=== PATIENT | male | born 1960 | race Caucasian/White ===

== ENCOUNTER 2018-06-11 17:32 | Observation (INO) | payer BC ==
[2018-06-11] MEDS ORDERED: SODIUM CHLORIDE 0.9% 1,000 ML IV STA ×2 (17:48)
--- NOTE | 2018-06-11 17:51 | ED ---
Recheck HPI - General Chief Complaint: Recheck/Abnormal Lab/Rx Stated Complaint: hyperglycemia Time Seen by Provider: 06/11/18 17:48 Source: patient, RN notes reviewed, old records reviewed Mode of arrival: ambulatory Limitations: no limitations - History of Present Illness Initial Comments: This is a 49-year-old male the ER for evaluation. Patient had an increase in urination increase in thirst as of the last 3 days. Today patient presents with those complaints as well as visit from [facility] showing significantly elevated blood sugar. Patient has no medical history takes no medications denies drugs or alcohol no fevers no chest pain no abdominal pain. MD Complaint: abnormal lab (Hyperglycemia) -: unknown Returns Today for: Called Because of Abnormal Lab/Test Symptoms Since Prior Visit: no new symptoms Context: called for abnormal lab result Associated Symptoms: none - Related Data Home Medications Medication Instructions Recorded Confirmed No Known Home Medications 06/11/18 06/11/18 Allergies Allergy/AdvReac Type Severity Reaction Status Date / Time No Known Allergies Allergy Unverified 06/11/18 18:20 Review of Systems ROS Statement: Those systems with pertinent positive or pertinent negative responses have been documented in the HPI. ROS Other: All systems not noted in ROS Statement are negative. Past Medical History Past Medical History: No Reported History History of Any Multi-Drug Resistant Organisms: None Reported Past Surgical History: Appendectomy Past Psychological History: No Psychological Hx Reported Smoking Status: Never smoker Past Alcohol Use History: Occasional Past Drug Use History: None Reported General Exam Limitations: no limitations General appearance: alert, in no apparent distress Head exam: Present: atraumatic, normocephalic, normal inspection Eye exam: Present: normal appearance, PERRL, EOMI. Absent: scleral icterus, conjunctival injection, periorbital swelling ENT exam: Present: normal exam, mucous membranes moist Neck exam: Present: normal inspection. Absent: tenderness, meningismus, lymphadenopathy Respiratory exam: Present: normal lung sounds bilaterally. Absent: respiratory distress, wheezes, rales, rhonchi, stridor Cardiovascular Exam: Present: regular rate, normal rhythm, normal heart sounds. Absent: systolic murmur, diastolic murmur, rubs, gallop, clicks GI/Abdominal exam: Present: soft, normal bowel sounds. Absent: distended, tenderness, guarding, rebound, rigid Extremities exam: Present: normal inspection, full ROM, normal capillary refill. Absent: tenderness, pedal edema, joint swelling, calf tenderness Back exam: Present: normal inspection Neurological exam: Present: alert, oriented X3, CN II-XII intact Psychiatric exam: Present: normal affect, normal mood Skin exam: Present: warm, dry, intact, normal color. Absent: rash Course Vital Signs 06/11/18 06/11/18 06/11/18 17:35 19:14 20:02 Temperature 98.4 F 98.0 F Pulse Rate 87 74 73 Respiratory 18 16 18 Rate Blood Pressure 157/101 125/90 158/105 O2 Sat by Pulse 96 98 99 Oximetry - Reevaluation(s) Reevaluation #1: 06/11/18 18:34 Medical record reviewed and noncontributory Medical Decision Making - Medical Decision Making 57 male the ER for evaluation, patient does have abnormal lab tests hyperglycemia. New-onset diabetes, patient has no family doctor and secondary to insurance unable to give family doctor in [facility], will admit for blood sugar control and diabetic counseling - Lab Data Result diagrams: 06/11/18 18:50 06/11/18 18:50 Lab Results 06/11/18 06/11/18 06/11/18 Range/Units 18:50 18:50 18:50 WBC 6.2 (3.8-10.6) k/uL RBC 6.21 H (4.30-5.90) m/uL Hgb 18.7 H (13.0-17.5) gm/dL Hct 56.5 H (39.0-53.0) % MCV 91.0 (80.0-100.0) fL MCH 30.1 (25.0-35.0) pg MCHC 33.1 (31.0-37.0) g/dL RDW 12.7 (11.5-15.5) % Plt Count 149 L (150-450) k/uL Neutrophils % 55 % Lymphocytes % 33 % Monocytes % 6 % Eosinophils % 3 % Basophils % 1 % Neutrophils # 3.4 (1.3-7.7) k/uL Lymphocytes # 2.0 (1.0-4.8) k/uL Monocytes # 0.4 (0-1.0) k/uL Eosinophils # 0.2 (0-0.7) k/uL Basophils # 0.1 (0-0.2) k/uL VBG pH (7.31-7.41) VBG pCO2 (37-51) mmHg VBG HCO3 (24-28) mmol/L Sodium 135 L (137-145) mmol/L Potassium 5.1 (3.5-5.1) mmol/L Chloride 99 (98-107) mmol/L Carbon Dioxide 22 (22-30) mmol/L Anion Gap 14 mmol/L BUN 17 (9-20) mg/dL Creatinine 0.72 (0.66-1.25) mg/dL Est GFR (CKD-EPI)AfAm >90 (>60 ml/min/1.73 sqM) Est GFR (CKD-EPI)NonAf >90 (>60 ml/min/1.73 sqM) Glucose 615 H* (74-99) mg/dL Calcium 10.3 H (8.4-10.2) mg/dL Phosphorus 4.2 (2.5-4.5) mg/dL Magnesium 1.9 (1.6-2.3) mg/dL Total Bilirubin 1.0 (0.2-1.3) mg/dL AST 33 (17-59) U/L ALT 54 (21-72) U/L Alkaline Phosphatase 221 H (38-126) U/L Troponin I <0.012 (0.000-0.034) ng/mL Total Protein 7.8 (6.3-8.2) g/dL Albumin 4.6 (3.5-5.0) g/dL Urine Color Urine Appearance (Clear) Urine pH (5.0-8.0) Ur Specific [place] (1.001-1.035) Urine Protein (Negative) Urine Glucose (UA) (Negative) Urine Ketones (Negative) Urine Blood (Negative) Urine Nitrite (Negative) Urine Bilirubin (Negative) Urine Urobilinogen (<2.0) mg/dL Ur Leukocyte Esterase (Negative) Acetone, Qual Negative (Negative) 06/11/18 06/11/18 Range/Units 18:50 19:09 WBC (3.8-10.6) k/uL RBC (4.30-5.90) m/uL Hgb (13.0-17.5) gm/dL Hct (39.0-53.0) % MCV (80.0-100.0) fL MCH (25.0-35.0) pg MCHC (31.0-37.0) g/dL RDW (11.5-15.5) % Plt Count (150-450) k/uL Neutrophils % % Lymphocytes % % Monocytes % % Eosinophils % % Basophils % % Neutrophils # (1.3-7.7) k/uL Lymphocytes # (1.0-4.8) k/uL Monocytes # (0-1.0) k/uL Eosinophils # (0-0.7) k/uL Basophils # (0-0.2) k/uL VBG pH 7.38 (7.31-7.41) VBG pCO2 43 (37-51) mmHg VBG HCO3 25 (24-28) mmol/L Sodium (137-145) mmol/L Potassium (3.5-5.1) mmol/L Chloride (98-107) mmol/L Carbon Dioxide (22-30) mmol/L Anion Gap mmol/L BUN (9-20) mg/dL Creatinine (0.66-1.25) mg/dL Est GFR (CKD-EPI)AfAm (>60 ml/min/1.73 sqM) Est GFR (CKD-EPI)NonAf (>60 ml/min/1.73 sqM) Glucose (74-99) mg/dL Calcium (8.4-10.2) mg/dL Phosphorus (2.5-4.5) mg/dL Magnesium (1.6-2.3) mg/dL Total Bilirubin (0.2-1.3) mg/dL AST (17-59) U/L ALT (21-72) U/L Alkaline Phosphatase (38-126) U/L Troponin I (0.000-0.034) ng/mL Total Protein (6.3-8.2) g/dL Albumin (3.5-5.0) g/dL Urine Color Light Yellow Urine Appearance Clear (Clear) Urine pH 5.0 (5.0-8.0) Ur Specific [place] 1.038 H (1.001-1.035) Urine Protein Negative (Negative) Urine Glucose (UA) 4+ H (Negative) Urine Ketones Trace H (Negative) Urine Blood Negative (Negative) Urine Nitrite Negative (Negative) Urine Bilirubin Negative (Negative) Urine Urobilinogen <2.0 (<2.0) mg/dL Ur Leukocyte Esterase Negative (Negative) Acetone, Qual (Negative) - EKG Data -: EKG Interpreted by Me (EKG shows normal sinus rhythm rate of 71, AL 150, QRS 160, QTc 4:15) Disposition Clinical Impression: Diabetes mellitus, new onset, Hyperglycemia Disposition: ADMITTED IP TO THIS HOSP Condition: Good Is patient prescribed a controlled substance at d/c from ED?: No Referrals: None,Stated [Primary Care Provider] - 1-2 days
[2018-06-11 19:05] LABS: Basophils # (A) 0.1 k/uL (0-0.2); Basophils % (A) 1 %; Eosinophils # (A) 0.2 k/uL (0-0.7); Eosinophils % (A) 3 %; HGB 18.7 gm/dL (13.0-17.5); Lymphocytes % (A) 33 %; MCH 30.1 pg (25.0-35.0); MCHC 33.1 g/dL (31.0-37.0); Mean Platelet Volume 9.5; Monocytes # (A) 0.4 k/uL (0-1.0); Monocytes % (A) 6 %; Neutrophils # (A) 3.4 k/uL (1.3-7.7); Neutrophils % (A) 55 %; Platelet Count 149 k/uL (150-450); RBC 6.21 m/uL (4.30-5.90); RDW 12.7 % (11.5-15.5); WBC 6.2 k/uL (3.8-10.6)
[2018-06-11 19:08] LABS: HCT 56.5 % (39.0-53.0)
[2018-06-11 19:09] LABS: Appearance,Urine Clear (Clear); Bilirubin,Urine Negative (Negative); Blood,Urine Negative (Negative); Color,Urine Light Yellow; Glucose,Urine (UA) 4+ (Negative); Ketones,Urine Trace (Negative); Leukocyte Esterase,Urine Negative (Negative); Nitrite,Urine Negative (Negative); Protein,Urine Negative (Negative); Specific Gravity,Urine 1.038 (1.001-1.035); Urobilinogen,Urine <2.0 mg/dL (<2.0)
[2018-06-11 19:14] LABS: ALT 54 U/L (21-72); AST 33 U/L (17-59); Albumin 4.6 g/dL (3.5-5.0); Alkaline Phosphatase 221 U/L (38-126); Anion Gap 14 mmol/L; Blood Urea Nitrogen 17 mg/dL (9-20); Calcium 10.3 mg/dL (8.4-10.2); Carbon Dioxide 22 mmol/L (22-30); Chloride 99 mmol/L (98-107); Magnesium 1.9 mg/dL (1.6-2.3); Phosphorus 4.2 mg/dL (2.5-4.5); Sodium 135 mmol/L (137-145); Total Protein 7.8 g/dL (6.3-8.2)
[2018-06-11 19:20] LABS: VBG PH 7.38 (7.31-7.41)
[2018-06-11 19:27] LABS: Glucose 615 mg/dL (74-99); Potassium 5.1 mmol/L (3.5-5.1)
[2018-06-11] MEDS ORDERED: SODIUM CHLORIDE 0.9% 1,000 ML IV ONE ×2 (20:04→20:29)
[2018-06-11] MEDS ORDERED: SODIUM CHLORIDE 0.9% 1,000 ML IV SCH (20:30)
[2018-06-11] MEDS: INSULIN REGULAR 100 UNIT in SODIUM CHLORIDE 0.9% 100 ML IV SCH (21:55)
[2018-06-11 22:03] LABS: Glucose,Whole Blood 350 mg/dL (75-99)
[2018-06-11] MEDS ORDERED: ACETAMINOPHEN TAB 500 MG TAB PO PRN (22:10)
[2018-06-11] MEDS ORDERED: HYDROcodone/APAP 5-325MG 1 EACH TAB PO PRN (22:10)
[2018-06-11] MEDS ORDERED: ALPRAZolam 0.25 MG TAB PO PRN (22:10)
[2018-06-11] MEDS ORDERED: D5-0.45% NACL WITH KCL 20MEQ/L 1,000 ML IV SCH (23:00)
[2018-06-11 23:32] LABS: Glucose,Whole Blood 288 mg/dL (75-99)
[2018-06-12 00:09] LABS: Anion Gap 7 mmol/L; Blood Urea Nitrogen 12 mg/dL (9-20); Carbon Dioxide 24 mmol/L (22-30); Chloride 109 mmol/L (98-107); Glucose 278 mg/dL (74-99); Potassium 3.7 mmol/L (3.5-5.1); Sodium 140 mmol/L (137-145)
[2018-06-12 00:31] LABS: Glucose,Whole Blood 236 mg/dL (75-99)
[2018-06-12 02:32] LABS: Glucose,Whole Blood 121 mg/dL (75-99)
[2018-06-12 03:51] LABS: Glucose,Whole Blood 134 mg/dL (75-99)
[2018-06-12 04:30] LABS: Anion Gap 6 mmol/L; Blood Urea Nitrogen 12 mg/dL (9-20); Carbon Dioxide 23 mmol/L (22-30); Chloride 110 mmol/L (98-107); Glucose 166 mg/dL (74-99); Potassium 3.6 mmol/L (3.5-5.1); Sodium 139 mmol/L (137-145)
[2018-06-12 05:45] LABS: Glucose,Whole Blood 197 mg/dL (75-99)
[2018-06-12] MEDS: INSULIN REGULAR 100 UNIT in SODIUM CHLORIDE 0.9% 100 ML IV SCH ×2 (07:25→08:21)
[2018-06-12 07:32] LABS: Glucose,Whole Blood 185 mg/dL (75-99)
[2018-06-12] MEDS: HEPARIN SODIUM,PORCINE 5,000 UNIT/ML 1 ML VIAL SQ SCH ×2 (09:38→20:27)
[2018-06-12 09:39] LABS: Glucose,Whole Blood 236 mg/dL (75-99)
[2018-06-12] MEDS: PANTOPRAZOLE 40 MG TABLET PO SCH (10:42)
[2018-06-12] MEDS ORDERED: INSULIN DETEMIR (LEVEMIR) 100 UNIT/ML SYR SQ ONE (11:26)
[2018-06-12 11:54] LABS: Glucose,Whole Blood 174 mg/dL (75-99)
[2018-06-12 13:16] VITALS: BMI 32.1
[2018-06-12] MEDS: INSULIN ASPART (NovoLOG) 100 UNIT/ML VIAL SQ SCH ×2 (15:09→18:21)
[2018-06-12 15:55] LABS: Hemoglobin A1C 15.9 % (4.0-6.0)
--- NOTE | 2018-06-12 16:01 | US ---
EXAMINATION TYPE: US abdomen complete DATE OF EXAM: 06/12/2018 COMPARISON: NONE CLINICAL HISTORY: Distension. EXAM MEASUREMENTS: Liver Length: 16.8 cm Gallbladder Wall: 0.2 cm CBD: 0.4 cm Spleen: 14.6 cm Right Kidney: 11.3 x 5.0 x 5.4 cm Left Kidney: 14.5 x 5.7 x 6.7 cm Extensive overlying bowel gas, large body habitus. Technically difficult study. Pancreas: Obscured by bowel gas Liver: Increased attenuation, decreased visualization of vessels suggestive of fatty infiltrate, griselda e portions obscured Gallbladder: wnl as seen Evidence for sonographic Schaefer's sign: no CBD: small portion visualized Spleen: splenomegaly Right Kidney: wnl Left Kidney: anechoic oblong structure measuring 2.3 x 1.2 x 2.4cm, measures large Upper IVC: wnl Abd Aorta: portions visualized wnl, some portions obscured by overlying bowel gas IMPRESSION: 1. Increased attenuation liver suggesting fatty infiltration, otitis and diffuse cellulitic disease. 2. Anechoic lesion involving the left kidney may be related to a renal cyst. 3. Mild splenomegaly.
[2018-06-12 17:53] LABS: Glucose,Whole Blood 272 mg/dL (75-99)
[2018-06-12] MEDS ORDERED: INSULIN DETEMIR (LEVEMIR) 100 UNIT/ML SYR SQ SCH (21:00)
--- NOTE | 2018-06-12 22:07 | P.HPIM ---
History of Present Illness H&P Date: 06/12/18 Chief Complaint: Increased urination Patient is a 57-year-old male without significant past medical history came to ER with complaints of increasing frequency of urination and drinking plenty of water which has been present for the past 6 weeks. Worsened during last 3 days. Otherwise patient denied any other medical problems. No complaints of chest pain or shortness of breath. No nausea vomiting or abdominal pain or diarrhea. No dysuria or hematuria. No headache or dizziness or lightheadedness. Denied any medication use. No drugs or alcohol. No history of smoking. Patient's father had diabetes at older age. Patient's brought him to the hospital. Blood sugar was 615 on admission A1c 15.9 Acetone negative Review of Systems Constitutional: Patient denies any fever or chills . No generalized weakness or weight loss. Abdomen: Patient denied nausea vomiting and diarrhea and abdominal pain. Cardiovascular: Patient denies any chest pain or short of breath no palpitations. Respiratory: patient denied any cough is from production. No shortness of breath Neurologic: Patient denied any numbness or tingling headache. Musculoskeletal: Patient denies any complaints of joint swelling or deformity. Skin: Negative Psychiatric: Negative Endocrine: No heat or cold intolerance. No recent weight gain. Genitourinary: No dysuria or hematuria. All other 14 point ROS negative except the above Past Medical History Past Medical History: No Reported History History of Any Multi-Drug Resistant Organisms: None Reported Past Surgical History: Appendectomy Additional Past Surgical History / Comment(s): Appendix taken out at 4 years old. 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 Smoking Status: Never smoker Past Alcohol Use History: Rare Past Drug Use History: None Reported - Past Family History Father Family Medical History: Diabetes Mellitus, Hypertension Additional Family Medical History / Comment(s): Borderline diabetic - . Medications and Allergies Home Medications Medication Instructions Recorded Confirmed Type No Known Home Medications 06/11/18 06/11/18 History Allergies Allergy/AdvReac Type Severity Reaction Status Date / Time No Known Allergies Allergy Unverified 06/11/18 18:20 Physical Exam Vitals: Vital Signs Temp Pulse Pulse Resp BP BP BP 06/12/18 05:15 97.7 F 66 20 06/11/18 22:40 98 F 73 20 06/11/18 21:52 98.1 F 79 16 147/99 06/11/18 21:28 155/101 151/105 06/11/18 20:48 73 16 136/98 06/11/18 20:02 98.0 F 73 18 158/105 06/11/18 19:14 74 16 125/90 06/11/18 17:35 98.4 F 87 18 157/101 BP Pulse Ox 06/12/18 05:15 118/77 97 06/11/18 22:40 150/98 98 06/11/18 21:52 97 06/11/18 21:28 135/91 06/11/18 20:48 97 06/11/18 20:02 99 06/11/18 19:14 98 06/11/18 17:35 96 Intake and Output 06/11/18 06/12/18 06/12/18 22:59 06:59 14:59 Intake Total 59.474 17.700 Balance 59.474 17.700 Intake: Intake, IV Titration 59.474 17.700 Amount Insulin Regular 100 unit 59.474 17.700 In Sodium Chloride 0.9% 100 ml @ 0.1 UNITS/KG/HR 11.444 mls/hr IV .Q8H50M COUNTS INCLUDE 234 BEDS AT THE [facility] Rx#:[id number] Other: Voiding Method Toilet Toilet Weight 113.307 kg PHYSICAL EXAMINATION: Patient is lying in the bed comfortably, no acute distress, awake alert and oriented.. HEENT: Normocephalic. Neck is supple. Pupils reactive. Nostrils clear. Oral cavity is moist. Ears reveal no drainage. Neck reveals no JVD, carotid bruits, or thyromegaly. CHEST EXAMINATION: Trachea is central. Symmetrical expansion. Lung main clear to auscultation and percussion. CARDIAC: Normal S1, S2 with no gallops. No murmurs ABDOMEN: Soft. Bowel sounds normal. No organomegaly. No abdominal bruits. Extremities: reveal no edema. No clubbing or cyanosis Neurologically awake, alert, oriented x3 with well-coordinated movements. No focal deficits noted Skin: No rash or skin lesions. Psychiatric: Coperative. Nonsuicidal Musculoskeletal: No joint swelling or deformity. Normal range of motion. Results CBC & Chem 7: 06/11/18 18:50 06/12/18 04:05 Labs: Abnormal Lab Results - Last 24 Hours (Table) 06/11/18 06/11/18 06/11/18 Range/Units 18:50 18:50 18:50 RBC 6.21 H (4.30-5.90) m/uL Hgb 18.7 H (13.0-17.5) gm/dL Hct 56.5 H (39.0-53.0) % Plt Count 149 L (150-450) k/uL Sodium 135 L (137-145) mmol/L Chloride (98-107) mmol/L Creatinine (0.66-1.25) mg/dL Glucose 615 H* (74-99) mg/dL POC Glucose (mg/dL) (75-99) mg/dL Calcium 10.3 H (8.4-10.2) mg/dL Alkaline Phosphatase 221 H (38-126) U/L Ur Specific [place] 1.038 H (1.001-1.035) Urine Glucose (UA) 4+ H (Negative) Urine Ketones Trace H (Negative) 06/11/18 06/11/18 06/11/18 Range/Units 21:52 23:12 23:45 RBC (4.30-5.90) m/uL Hgb (13.0-17.5) gm/dL Hct (39.0-53.0) % Plt Count (150-450) k/uL Sodium (137-145) mmol/L Chloride 109 H (98-107) mmol/L Creatinine 0.56 L (0.66-1.25) mg/dL Glucose 278 H (74-99) mg/dL POC Glucose (mg/dL) 350 H 288 H (75-99) mg/dL Calcium (8.4-10.2) mg/dL Alkaline Phosphatase (38-126) U/L Ur Specific [place] (1.001-1.035) Urine Glucose (UA) (Negative) Urine Ketones (Negative) 06/12/18 06/12/18 06/12/18 Range/Units 00:30 02:30 03:35 RBC (4.30-5.90) m/uL Hgb (13.0-17.5) gm/dL Hct (39.0-53.0) % Plt Count (150-450) k/uL Sodium (137-145) mmol/L Chloride (98-107) mmol/L Creatinine (0.66-1.25) mg/dL Glucose (74-99) mg/dL POC Glucose (mg/dL) 236 H 121 H 134 H (75-99) mg/dL Calcium (8.4-10.2) mg/dL Alkaline Phosphatase (38-126) U/L Ur Specific [place] (1.001-1.035) Urine Glucose (UA) (Negative) Urine Ketones (Negative) 06/12/18 06/12/18 06/12/18 Range/Units 04:05 05:44 07:29 RBC (4.30-5.90) m/uL Hgb (13.0-17.5) gm/dL Hct (39.0-53.0) % Plt Count (150-450) k/uL Sodium (137-145) mmol/L Chloride 110 H (98-107) mmol/L Creatinine 0.53 L (0.66-1.25) mg/dL Glucose 166 H (74-99) mg/dL POC Glucose (mg/dL) 197 H 185 H (75-99) mg/dL Calcium (8.4-10.2) mg/dL Alkaline Phosphatase (38-126) U/L Ur Specific [place] (1.001-1.035) Urine Glucose (UA) (Negative) Urine Ketones (Negative) 06/12/18 Range/Units 09:31 RBC (4.30-5.90) m/uL Hgb (13.0-17.5) gm/dL Hct (39.0-53.0) % Plt Count (150-450) k/uL Sodium (137-145) mmol/L Chloride (98-107) mmol/L Creatinine (0.66-1.25) mg/dL Glucose (74-99) mg/dL POC Glucose (mg/dL) 236 H (75-99) mg/dL Calcium (8.4-10.2) mg/dL Alkaline Phosphatase (38-126) U/L Ur Specific [place] (1.001-1.035) Urine Glucose (UA) (Negative) Urine Ketones (Negative) Microbiology - Last 24 Hours (Table) 06/11/18 18:50 Urine Culture - Preliminary Urine,Voided Thrombosis Risk Factor Assmnt - DVT/VTE Prophylaxis DVT/VTE Prophylaxis: Pharmacologic Prophylaxis ordered - Choose All That Apply Any of the Below Risk Factors Present?: Yes Each Factor Represents 1 point: Age 41-60 years, Obesity (BMI >25) Other Risk Factors: No Other congenital or acquired thrombophilia - If yes, enter type in comment: No Thrombosis Risk Factor Assessment Total Risk Factor Score: 2 Thrombosis Risk Factor Assessment Level: Low Risk Assessment and Plan Assessment: New onset diabetes2 Hyperglycemia with hB A1c 15.9 Polyuria and polydipsia Mild hypovolemic hyponatremia Hypercalcemia due to dehydration DVT prophylaxis Plan: Patient will be continued on IV hydration. Currently on insulin drip. CBG trending down to around 200. patient will be started on Levemir 21 units at bedtime and NovoLog 7 units 3 times a day before meals. Titrate as needed. Diabetic education will be provided. Continue to follow lites. Discussed with the patient and his at bedside in detail. Further recommendations based on the clinical course. Time with Patient: Greater than 30
[2018-06-12 23:14] LABS: Glucose,Whole Blood 296 mg/dL (75-99)
[2018-06-13 07:06] LABS: Glucose,Whole Blood 226 mg/dL (75-99)
[2018-06-13] MEDS: HEPARIN SODIUM,PORCINE 5,000 UNIT/ML 1 ML VIAL SQ SCH ×2 (07:57→08:00)
[2018-06-13] MEDS: INSULIN ASPART (NovoLOG) 100 UNIT/ML VIAL SQ SCH ×2 (07:58→13:14)
[2018-06-13] MEDS: PANTOPRAZOLE 40 MG TABLET PO SCH (07:58)
[2018-06-13 10:00] LABS: Basophils % (A) 1 %; Eosinophils # (A) 0.2 k/uL (0-0.7); Eosinophils % (A) 4 %; HCT 46.7 % (39.0-53.0); HGB 15.9 gm/dL (13.0-17.5); Lymphocytes # (A) 1.3 k/uL (1.0-4.8); Lymphocytes % (A) 28 %; MCH 29.8 pg (25.0-35.0); MCV 87.9 fL (80.0-100.0); Mean Platelet Volume 8.6; Monocytes # (A) 0.2 k/uL (0-1.0); Monocytes % (A) 5 %; Neutrophils # (A) 2.9 k/uL (1.3-7.7); Neutrophils % (A) 62 %; Platelet Count 145 k/uL (150-450); RBC 5.31 m/uL (4.30-5.90); RDW 13.4 % (11.5-15.5); WBC 4.6 k/uL (3.8-10.6)
[2018-06-13 10:36] LABS: Anion Gap 5 mmol/L; Blood Urea Nitrogen 11 mg/dL (9-20); Calcium 9.1 mg/dL (8.4-10.2); Carbon Dioxide 27 mmol/L (22-30); Chloride 105 mmol/L (98-107); Glucose 275 mg/dL (74-99); Potassium 4.3 mmol/L (3.5-5.1); Sodium 137 mmol/L (137-145)
[2018-06-13] MEDS ORDERED: INSULIN ASPART (NovoLOG) 100 UNIT/ML VIAL SQ SCH (12:30)
[2018-06-13 12:40] LABS: Glucose,Whole Blood 246 mg/dL (75-99)
[2018-06-13 13:17] VITALS: BP 158/53; PULSE 67; RESP 16; TEMP 97.6
== END 2018-06-13 14:25 | disposition home or self-care (01) ==
LOC: EC 17:32 → 4MS4W 20:29
PROVIDERS: ADMIT Hospitalist; ATTEND Hospitalist
DX: E11.65 Type 2 diabetes mellitus with hyperglycemia (principal); Z83.3 Family history of diabetes mellitus; E66.9 Obesity, unspecified; Z68.32 Body mass index [BMI] 32.0-32.9, adult; E87.1 Hypo-osmolality and hyponatremia; E86.1 Hypovolemia; E86.0 Dehydration; E83.52 Hypercalcemia; Z82.49 Family history of ischemic heart disease and other diseases of the circulatory system
CPT/HCPCS: 96361 ×2; 96360; 99285; 36415; 93005; 80051 ×2; 80053; 80048; 82565 ×2; 82803; 82009; 83735; 84100 ×2; 82947 ×2; 84520 ×2; 84484; 85025 ×2; 81003; 87086; 83036; 76700; G0378 ×3

== ENCOUNTER 2022-01-07 19:59 | Emergency (ER) | payer BC ==
[2022-01-07 20:31] VITALS: TEMP 98.9
--- NOTE | 2022-01-07 22:11 | US ---
EXAMINATION TYPE: US venous doppler duplex LE LT DATE OF EXAM: 01/07/2022 9:31 PM COMPARISON: NONE CLINICAL HISTORY: redness, rule out dvt. redness in left calf x 4 weeks. No hx of DVT, not on blood t hinners SIDE PERFORMED: Left TECHNIQUE: The lower extremity deep venous system is examined utilizing real time linear array sonog jomar with graded compression, doppler sonography and color-flow sonography. VESSELS IMAGED: Common Femoral Vein Deep Femoral Vein Greater Saphenous Vein * Femoral Vein Popliteal Vein Small Saphenous Vein * Proximal Calf Veins (* superficial vessels) FINDINGS: Grayscale, color doppler, spectral doppler imaging performed of the deep veins of the lowe r extremities. There is normal flow, compressibility, vascular waveforms. IMPRESSION: Negative for DVT, left lower extremity.
[2022-01-07] MEDS ORDERED: CLINDAMYCIN 150 MG CAP PO STA (22:18)
[2022-01-07 22:33] LABS: Basophils # (A) 0.1 k/uL (0-0.2); Basophils % (A) 2 %; Eosinophils # (A) 0.2 k/uL (0-0.7); Eosinophils % (A) 3 %; HCT 52.3 % (39.0-53.0); HGB 18.1 gm/dL (13.0-17.5); Lymphocytes # (A) 2.3 k/uL (1.0-4.8); Lymphocytes % (A) 39 %; MCH 31.2 pg (25.0-35.0); MCHC 34.6 g/dL (31.0-37.0); Mean Platelet Volume 9.6; Monocytes # (A) 0.4 k/uL (0-1.0); Monocytes % (A) 7 %; Neutrophils # (A) 2.9 k/uL (1.3-7.7); Neutrophils % (A) 47 %; Platelet Count 152 k/uL (150-450); RBC 5.82 m/uL (4.30-5.90); RDW 12.4 % (11.5-15.5); WBC 6.1 k/uL (3.8-10.6)
--- NOTE | 2022-01-07 22:35 | ED ---
Skin/Abscess/FB HPI - General Chief complaint: Skin/Abscess/Foreign Body Stated complaint: Sore on L leg Time Seen by Provider: 01/07/22 21:15 Source: patient Mode of arrival: ambulatory Limitations: no limitations - History of Present Illness Initial comments: Patient is a 61-year-old male who presents to the emergency department for evaluation of left leg redness. Patient states he noticed left leg redness and swelling on December 27. Patient states a few days prior he felt a bug bite in this same leg. Patient went to his primary care provider who put him on Keflex for 7 days for cellulitis. Patient took the full prescription. States the swel ling went away and the redness decreased however never fully went away. He initially had pain during the first couple days of antibiotics which has since resolved. Patient concerned with leg redness. He denies weakness, fever, chills, nausea, vomiting, headache, muscle aches. Denies history of cellulitis and MRSA. Denies history of DVT and PE. Denies family history of DVT. Denies recent long car travel and airplane travel. Denies past and present use of tobacco. - Related Data Previous Rx's Medication Instructions Recorded Insulin Aspart [NovoLOG Flexpen] 8 units SQ TID-W/MEALS #15 ml 06/13/18 Insulin Aspart [NovoLOG Flexpen] See Protocol SQ ACHS #15 ml 06/13/18 Insulin Detemir [Levemir Flextouch] 24 units SQ HS #15 ml 06/13/18 Clindamycin [Cleocin] 450 mg PO Q8H #45 capsule 01/07/22 Allergies Allergy/AdvReac Type Severity Reaction Status Date / Time No Known Allergies Allergy Unverified 06/11/18 18:20 Review of Systems ROS Statement: Those systems with pertinent positive or pertinent negative responses have been documented in the HPI. ROS Other: All systems not noted in ROS Statement are negative. Past Medical History Past Medical History: Diabetes Mellitus History of Any Multi-Drug Resistant Organisms: None Reported Past Surgical History: Appendectomy Additional Past Surgical History / Comment(s): Appendix taken out at 4 years old. Past Anesthesia/Blood Transfusion Reactions: No Reported Reaction Past Psychological History: No Psychological Hx Reported Past Alcohol Use History: Rare Past Drug Use History: None Reported - Past Family History Father Family Medical History: Diabetes Mellitus, Hypertension Additional Family Medical History / Comment(s): Borderline diabetic - . General Exam Limitations: no limitations General appearance: alert, in no apparent distress Head exam: Present: atraumatic, normocephalic, normal inspection Eye exam: Present: normal appearance, PERRL, EOMI. Absent: scleral icterus, conjunctival injection, periorbital swelling Respiratory exam: Present: normal lung sounds bilaterally. Absent: respiratory distress, wheezes, rales, rhonchi, stridor Cardiovascular Exam: Present: regular rate, normal rhythm, normal heart sounds. Absent: systolic murmur, diastolic murmur, rubs, gallop, clicks Extremities exam: Present: other (erythematous left lower leg which starts at the ankle moving to mid turcios anteriorly. blanching. well demarcated borders. minimally tender and minimally warm ). Absent: calf tenderness Neurological exam: Present: alert, oriented X3, CN II-XII intact Psychiatric exam: Present: normal affect, normal mood Skin exam: Present: warm, dry, intact, normal color. Absent: rash Course Vital Signs 01/07/22 01/07/22 20:29 22:31 Temperature 98.9 F Pulse Rate 85 73 Respiratory 16 17 Rate Blood Pressure 172/111 171/97 O2 Sat by Pulse 98 98 Oximetry Medical Decision Making - Medical Decision Making This is a 61-year-old male presents with left leg redness. Afebrile. The left lower leg is erythematous which starts at the ankle moving to mid turcios anteriorly. Blanching. Well demarcated borders. Minimally tender and minimally warm. Mild epidermal desquamation of skin in this region. No fluid collection. Neurovascularly intact. Ultrasound Doppler of left lower extremity is negative for DVT. Laboratory studies obtained. There is no leukocytosis. Potassium is low at 3.2. Calcium is low at 7.0. Results discussed with patient. Patient will be treated for a mild cellulitic infection. He will be discharged with clindamycin. Possible side effects di scussed. First dose given in the emergency department. He was also supplemented with potassium and calcium. He'll follow up with his primary care provider regarding cellulitis and electrolyte abnormalities. Return parameters discussed. Dr. Barker is my attending. - Lab Data Result diagrams: 01/07/22 21:46 01/07/22 21:46 Lab Results 01/07/22 01/07/22 Range/Units 21:46 21:46 WBC 6.1 (3.8-10.6) k/uL RBC 5.82 (4.30-5.90) m/uL Hgb 18.1 H (13.0-17.5) gm/dL Hct 52.3 (39.0-53.0) % MCV 90.0 (80.0-100.0) fL MCH 31.2 (25.0-35.0) pg MCHC 34.6 (31.0-37.0) g/dL RDW 12.4 (11.5-15.5) % Plt Count 152 (150-450) k/uL MPV 9.6 Neutrophils % 47 % Lymphocytes % 39 % Monocytes % 7 % Eosinophils % 3 % Basophils % 2 % Neutrophils # 2.9 (1.3-7.7) k/uL Lymphocytes # 2.3 (1.0-4.8) k/uL Monocytes # 0.4 (0-1.0) k/uL Eosinophils # 0.2 (0-0.7) k/uL Basophils # 0.1 (0-0.2) k/uL Sodium 139 (137-145) mmol/L Potassium 3.2 L (3.5-5.1) mmol/L Chloride 110 H (98-107) mmol/L Carbon Dioxide 20 L (22-30) mmol/L Anion Gap 9 mmol/L BUN 11 (9-20) mg/dL Creatinine 0.60 L (0.66-1.25) mg/dL Est GFR (CKD-EPI)AfAm >90 (>60 ml/min/1.73 sqM) Est GFR (CKD-EPI)NonAf >90 (>60 ml/min/1.73 sqM) Glucose 181 H (74-99) mg/dL Calcium 7.0 L (8.4-10.2) mg/dL Total Bilirubin 0.6 (0.2-1.3) mg/dL AST 14 L (17-59) U/L ALT 24 (4-49) U/L Alkaline Phosphatase 77 (38-126) U/L Total Protein 5.4 L (6.3-8.2) g/dL Albumin 3.2 L (3.5-5.0) g/dL Disposition Clinical Impression: Cellulitis of left lower extremity, Hypocalcemia, Hypokalemia Disposition: HOME SELF-CARE Condition: Good Instructions (If sedation given, give patient instructions): Cellulitis (ED), Hypokalemia (ED), Hypocalcemia (ED) Additional Instructions: Please take antibiotic as directed. Elevate left leg at home. Follow up with [facility] care provider in 1-2 days. Please let them know your calcium and potassium were low today. He will need repeat labs. Return to the emergency department if you experience new, concerning, or worsening symptoms. Prescriptions: Clindamycin [Cleocin] 450 mg PO Q8H #45 capsule Is patient prescribed a controlled substance at d/c from ED?: No Referrals: Mikayla De La Cruz DO [Primary Care Provider] - 1-2 days
[2022-01-07 22:39] VITALS: RESP 17
[2022-01-07 22:51] LABS: ALT 24 U/L (4-49); AST 14 U/L (17-59); African American GFR (CKD) >90 (>60 ml/min/1.73 sqM); Albumin 3.2 g/dL (3.5-5.0); Alkaline Phosphatase 77 U/L (38-126); Anion Gap 9 mmol/L; Blood Urea Nitrogen 11 mg/dL (9-20); Carbon Dioxide 20 mmol/L (22-30); Chloride 110 mmol/L (98-107); Glucose 181 mg/dL (74-99); Non-African American GFR(CKD) >90 (>60 ml/min/1.73 sqM); Potassium 3.2 mmol/L (3.5-5.1); Sodium 139 mmol/L (137-145); Total Bilirubin 0.6 mg/dL (0.2-1.3); Total Protein 5.4 g/dL (6.3-8.2)
[2022-01-07] MEDS ORDERED: POTASSIUM CHLORIDE ER 20 MEQ TAB.ER PO STA (22:52)
[2022-01-07] MEDS ORDERED: CALCIUM CARBONATE 500 MG CHEWABLE PO STA (22:53)
[2022-01-07 23:28] VITALS: BP 159/99; PULSE 84
== END 2022-01-07 23:29 | disposition home or self-care (01) ==
LOC: EC 19:59
DX: L03.116 Cellulitis of left lower limb (principal); E83.51 Hypocalcemia; E87.6 Hypokalemia; E11.9 Type 2 diabetes mellitus without complications; Z79.4 Long term (current) use of insulin
CPT/HCPCS: 36415; 80053; 85025; 99284

== ENCOUNTER 2022-09-17 12:59 | Inpatient (IN) | payer BC ==
--- NOTE | 2022-09-17 13:42 | ED ---
Lower Extremity Injury HPI - General Chief Complaint: Extremity Injury, Lower Stated Complaint: rt foot toe wound Time Seen by Provider: 09/17/22 13:15 Source: patient, RN notes reviewed Mode of arrival: ambulatory Limitations: no limitations - History of Present Illness Initial Comments: This is a 62-year-old male who presents to the emergency department for a right great toe infection. States that a little over a week ago, he stepped on a nail. He went to urgent care a couple of days later and had the toe washed and was started on antibiotics. He was taking ciprofloxacin and Keflex, which he finished 2 days ago. States that the toe looks somewhat better, but is still very swollen with an open wound on the bottom. Denies any significant pain associated with this. Patient is diabetic. He was told by urgent care that if this does not improve with antibiotics, that he should go to the emergency department for reevaluation. Denies any fevers or chills. Patient is diabetic, but denies having problems with infections like this before. Denies any fevers, chills, sore throat, cough, dyspnea, chest pain, palpitations, abdominal pain, nausea, vomiting, diarrhea, back pain, or headaches. MD Complaint: other (Toe injury) - Related Data Previous Rx's Medication Instructions Recorded Insulin Aspart [NovoLOG Flexpen] 8 units SQ TID-W/MEALS #15 ml 06/13/18 Insulin Aspart [NovoLOG Flexpen] See Protocol SQ ACHS #15 ml 06/13/18 Insulin Detemir [Levemir Flextouch] 24 units SQ HS #15 ml 06/13/18 Clindamycin [Cleocin] 450 mg PO Q8H #45 capsule 01/07/22 Allergies Allergy/AdvReac Type Severity Reaction Status Date / Time No Known Allergies Allergy Unverified 06/11/18 18:20 Review of Systems ROS Statement: Those systems with pertinent positive or pertinent negative responses have been documented in the HPI. ROS Other: All systems not noted in ROS Statement are negative. Past Medical History Past Medical History: Diabetes Mellitus History of Any Multi-Drug Resistant Organisms: None Reported Past Surgical History: Appendectomy Additional Past Surgical History / Comment(s): Appendix taken out at 4 years old. Past Anesthesia/Blood Transfusion Reactions: No Reported Reaction Past Psychological History: No Psychological Hx Reported Past Alcohol Use History: Rare Past Drug Use History: None Reported - Past Family History Father Family Medical History: Diabetes Mellitus, Hypertension Additional Family Medical History / Comment(s): Borderline diabetic - . General Exam Limitations: no limitations General appearance: alert, in no apparent distress Head exam: Present: atraumatic, normocephalic, normal inspection Respiratory exam: Present: normal lung sounds bilaterally. Absent: respiratory distress, wheezes, rales, rhonchi, stridor Cardiovascular Exam: Present: regular rate, normal rhythm, normal heart sounds. Absent: systolic murmur, diastolic murmur, rubs, gallop, clicks Extremities exam: Present: other (Swelling, erythema, and increased heat to the right great toe with erythema starting to track down the foot. There is an open wound on the bottom of the toe with active purulent drainage and fibrinous tissue.) Neurological exam: Present: alert, oriented X3, CN II-XII intact Psychiatric exam: Present: normal affect, normal mood Course Vital Signs 09/17/22 13:05 Temperature 97.8 F Pulse Rate 89 Respiratory 20 Rate Blood Pressure 158/105 O2 Sat by Pulse 98 Oximetry Medical Decision Making - Medical Decision Making This is a 62-year-old male who presents to the the emergency department for concerns of an infection of the right great toe. Was pt. sent in by a medical professional or institution? @ -No Did you speak to anyone other than the patient for history? @ -No Did you review nursing and triage notes? @ -Yes, and I agree, it is accurate with regards to the patient's symptoms. Were old charts reviewed? @ -No Differential Diagnosis? @ -Differential Toe Swelling: Fracture, dislocation, contusion, cellulitis, abscess, gout, this is not meant to be an all-inclusive list. EKG interpreted by me (3pts min.)? @ -Not obtained X-rays interpreted by me (1pt min.)? @ -X-ray of the right great toe obtained. My interpretation identifies no evidence of subcutaneous gas formation. CT interpreted by me (1pt min.)? @ -Not obtained U/S interpreted by me (1pt. min.)? @ -Not obtained What testing was considered but not performed? (CT, X-rays, U/S, labs)? Why? @ -None What meds were considered but not given? Why? @ -None Did you discuss the management of the patient with other professionals? @ -Yes, Dr. Yeung, who accepts the patient for admission. Did you reconcile home meds? @ -No Was smoking cessation discussed for >3mins.? @ -No Was critical care preformed (if so, how long)? @ -No Were there social determinants of health that impacted care today? How? (Homelessness, low income, unemployed, alcoholism, drug addiction, transportation, low edu. Level, literacy, decrease access to med. care, prison, rehab)? @ -No Was there de-escalation of care discussed even if they declined? (Discuss DNR or withdrawal of care, Hospice)? @ -No What co-morbidities impacted this encounter? (DM, HTN, Smoking, COPD, CAD, Cancer, CVA, Hep., AIDS, mental health diagnosis, sleep apnea, morbid obesity)? @ -DM Was patient admitted / discharged? @ -Admitted. Lab work obtained revealing a mildly elevated CRP at 4.0, and it was otherwise nonactionable. X-ray of the right great toe revealed no acute process. However, on physical examination, the toe does appear to continue to be very infected. I was able to express some purulent discharge from the open wound at the bottom. He also has erythema starting to track down the foot to some extent. Dr. Schwab evaluated the patient at bedside, and was also concerned about the level of infection possibly progressing to osteomyelitis. Patient admitted to medicine for further care and failed outpatient management. He was started on IV vancomycin with blood and wound cultures obtained prior. Consult placed for infectious disease. Undiagnosed new problem with uncertain prognosis? @ -None Drug Therapy requiring intensive monitoring for toxicity (Heparin, Nitro, Insulin, Cardizem)? @ -None Were any procedures done? @ -None Diagnosis/symptom? @ -Right great toe cellulitis, failed outpatient management Acute, or Chronic, or Acute on Chronic? @ -Acute Uncomplicated (without systemic symptoms) or Complicated (systemic symptoms)? @ -Uncomplicated Side effects of treatment? @ -None Exacerbation, Progression, or Severe Exacerbation] @ -Not applicable Poses a threat to life or bodily function? @ -Yes This case was discussed in detail with the attending ED physician, Dr. Schwab. Presentation, findings, and treatment plan discussed in detail as well. - Lab Data Result diagrams: 09/17/22 13:30 09/17/22 13:30 Lab Results 09/17/22 09/17/22 09/17/22 Range/Units 13:30 13:30 13:30 WBC 9.3 (3.8-10.6) k/uL RBC 5.67 (4.30-5.90) m/uL Hgb 17.3 (13.0-17.5) gm/dL Hct 49.5 (39.0-53.0) % MCV 87.3 (80.0-100.0) fL MCH 30.5 (25.0-35.0) pg MCHC 34.9 (31.0-37.0) g/dL RDW 12.5 (11.5-15.5) % Plt Count 196 (150-450) k/uL MPV 8.8 Neutrophils % 67 % Lymphocytes % 24 % Monocytes % 5 % Eosinophils % 2 % Basophils % 0 % Neutrophils # 6.3 (1.3-7.7) k/uL Lymphocytes # 2.2 (1.0-4.8) k/uL Monocytes # 0.5 (0-1.0) k/uL Eosinophils # 0.2 (0-0.7) k/uL Basophils # 0.0 (0-0.2) k/uL Sodium 136 L (137-145) mmol/L Potassium 4.3 (3.5-5.1) mmol/L Chloride 102 (98-107) mmol/L Carbon Dioxide 25 (22-30) mmol/L Anion Gap 9 mmol/L BUN 18 (9-20) mg/dL Creatinine 0.80 (0.66-1.25) mg/dL Est GFR (CKD-EPI)AfAm >90 (>60 ml/min/1.73 sqM) Est GFR (CKD-EPI)NonAf >90 (>60 ml/min/1.73 sqM) Glucose 244 H (74-99) mg/dL Plasma Lactic Acid Erik 1.8 (0.7-2.0) mmol/L Calcium 9.4 (8.4-10.2) mg/dL Total Bilirubin 1.0 (0.2-1.3) mg/dL AST 25 (17-59) U/L ALT 26 (4-49) U/L Alkaline Phosphatase 94 (38-126) U/L C-Reactive Protein 4.0 H (<1.0) mg/dL Total Protein 7.6 (6.3-8.2) g/dL Albumin 4.4 (3.5-5.0) g/dL - Radiology Data Radiology results: report reviewed, image reviewed Disposition Clinical Impression: Cellulitis of great toe, right, Failure of outpatient treatment Disposition: ADMITTED IP TO THIS HOSP Referrals: Mikayla De La Cruz DO [Primary Care Provider] - 1-2 days
[2022-09-17 13:53] LABS: Basophils % (A) 0 %; Eosinophils # (A) 0.2 k/uL (0-0.7); Eosinophils % (A) 2 %; HCT 49.5 % (39.0-53.0); HGB 17.3 gm/dL (13.0-17.5); Lymphocytes # (A) 2.2 k/uL (1.0-4.8); Lymphocytes % (A) 24 %; MCH 30.5 pg (25.0-35.0); MCHC 34.9 g/dL (31.0-37.0); MCV 87.3 fL (80.0-100.0); Mean Platelet Volume 8.8; Monocytes # (A) 0.5 k/uL (0-1.0); Monocytes % (A) 5 %; Neutrophils # (A) 6.3 k/uL (1.3-7.7); Neutrophils % (A) 67 %; Platelet Count 196 k/uL (150-450); RBC 5.67 m/uL (4.30-5.90); RDW 12.5 % (11.5-15.5); WBC 9.3 k/uL (3.8-10.6)
--- NOTE | 2022-09-17 14:04 | XR ---
EXAMINATION TYPE: XR toes RT DATE OF EXAM: 09/17/2022 COMPARISON: NONE HISTORY: Pain TECHNIQUE: Three views are submitted. FINDINGS: The osseous structures are intact. There is no acute fracture or dislocation. Peog-em-sdiwjpyz fir st MTP. There is soft tissue edema. No metallic foreign body. There are tiny punctate densities along the plantar surface of DIP joint. IMPRESSION: 1. No acute fracture or dislocation. No destructive change. No metallic foreign body. Indeterminate t iny punctate densities along the plantar surface of the DIP joint. Correlate clinically.
[2022-09-17 14:05] LABS: ALT 26 U/L (4-49); AST 25 U/L (17-59); African American GFR (CKD) >90 (>60 ml/min/1.73 sqM); Albumin 4.4 g/dL (3.5-5.0); Alkaline Phosphatase 94 U/L (38-126); Anion Gap 9 mmol/L; Blood Urea Nitrogen 18 mg/dL (9-20); Calcium 9.4 mg/dL (8.4-10.2); Carbon Dioxide 25 mmol/L (22-30); Chloride 102 mmol/L (98-107); Glucose 244 mg/dL (74-99); Non-African American GFR(CKD) >90 (>60 ml/min/1.73 sqM); Potassium 4.3 mmol/L (3.5-5.1); Sodium 136 mmol/L (137-145); Total Protein 7.6 g/dL (6.3-8.2)
[2022-09-17] MEDS ORDERED: VANCOMYCIN IV PER PHARMACY 1 EACH MISC MISCELLANE PRN (14:37)
[2022-09-17] MEDS ORDERED: ACETAMINOPHEN TAB 325 MG TAB PO PRN (14:40)
[2022-09-17] MEDS ORDERED: NALOXONE 0.4 MG/ML 1 ML VIAL IV PRN (14:40)
[2022-09-17] MEDS ORDERED: HYDROcodone/APAP 5-325MG 1 EACH TAB PO PRN (14:40)
[2022-09-17] MEDS ORDERED: ONDANSETRON 4 MG/2 ML VIAL IVP PRN (14:40)
[2022-09-17] MEDS ORDERED: VANCOMYCIN 1,750 MG in SODIUM CHLORIDE 0.9% 500 ML 500 ML IVPB STA (14:44)
--- NOTE | 2022-09-17 17:47 | P.HPIM ---
History of Present Illness H&P Date: 09/17/22 History of Presenting Illness: Patient is a very pleasant 62-year-old male with a past medical history of insulin-dependent diabetes mellitus, hypertension, and hyperlipidemia.. He presented to the emergency department secondary to concerns of nonhealing diabetic wound to right great toe. Patient reports on 09/05/22 he stepped on a nail causing a puncture wound of right great toe. Patient reports that this time he was evaluated at the urgent care center where wound was thoroughly cleaned and he was started on a 10 day course of ciprofloxacin and Keflex in which she completed on 09/15/22 with little improvement in wound of right great toe. Patient states that he was instructed if he did not have improvement he will need to come to the emergency department for evaluation due to nonhealing diabetic wound. Patient reports that he has noticed his blood glucose levels benitez ve been elevated at home. He denies any known fevers, chills, diaphoresis, chest pain, palpitations, shortness of breath, nausea, vomiting, abdominal pain, difficulties with her changes in his urination, or experiencing any numbness/tingling/weakness in his extremities. Patient reports last TDAP was in 2019. He underwent full evaluation in the emergency department. Vital signs evaluated. Blood pressure 158/105, heart rate 89, respiratory rate 20, SpO2 98% on room air with temp 97.8F. CBC unremarkable with WBC count of 9.3. BMP showing elevated glucose of 244. Liver enzymes normal findings. CRP elevated at 4.0. X-ray right foot negative for acute fracture or dislocation showing no distracted changes, no metallic foreign bodies noted, with indeterminant tiny punctuate densities along the plantar surface of the DIP joint. Discussed patient presentation, physical exam findings, laboratory analysis, and imaging results in detail with the ED physician. Patient to be started on vancomycin and will be admitted under our services with consultation to infectious disease. Review of systems: Pertinent positives and negatives as discussed in HPI, a complete review of systems was performed and all other systems are negative. Physical exam: Vital signs reviewed and stable. General: Nontoxic, no distress and appears stated age. Derm: Skin warm and dry, normal coloration for ethnicity. patient with moderate swelling and erythema of right great toe with wound/ulcer to pedal surface of the base of his right great toe with clear yellow drainage. Head: Atraumatic, normocephalic and symmetric. Eyes: EOMs intact, no lid lag, and anicteric sclera Mouth: no lip lesions, mucus membranes moist Cardiovascular: regular rate and rhythm with normal S1S2, no murmur, positive posterior tibial pulses bilaterally, and cap refill < 2 seconds. Lungs: Respirations even, regular, and unlabored on room air. Lungs CTA bilaterally, no rhonchi, no rales, no wheezing, and no accessory muscle usage. Abdominal: soft, nontender to palpation, no guarding, no appreciable organomegaly Ext: ROM intact. No gross muscle atrophy, no edema, no contractures Neuro: Speech clear, face symmetrical and CN II-XII grossly intact with no noted focal neuro deficits Psych: Alert and oriented to person, place, time, and situation. Appropriate and pleasant affect. Assessment and Plan of Care: Nonhealing diabetic wound/ulcer failed outpatient treatment with antibiotics Insulin-dependent diabetes mellitus with hyperglycemia -Vital signs evaluated. Blood pressure 158/105, heart rate 89, respiratory rate 20, SpO2 98% on room air with temp 97.8F. -Labs completed and reviewed. CBC unremarkable with WBC count of 9.3. BMP showing elevated glucose of 244. Liver enzymes normal findings. CRP elevated at 4.0. -X-ray right foot negative for acute fracture or dislocation showing no dist racted changes, no metallic foreign bodies noted, with indeterminant tiny punctuate densities along the plantar surface of the DIP joint. -Discussed patient presentation, physical exam findings, laboratory analysis, and imaging results in detail with the ED physician. -Patient to be admitted under our services with consultation to infectious disease. -Continue IV antibiotics with vancomycin 1750 mg every 12 hours. -We will follow up on repeat morning BMP to monitor renal function closely for any signs of vancomycin associated toxicity. -Patient placed on Glycemic protocol. Patient to continue with Levemir 40 units nightly and placed on NovoLog sliding scale. -Order placed for hemoglobin A1c. -Will follow up on blood cultures. Hypertension Patient to continue daily medication regimen with lisinopril 5 mg daily. Hyperlipidemia Patient to continue daily medication regimen with atorvastatin 10 mg nightly. The patient is admitted with an anticipated greater than 2 midnight stay for evaluation of nonhealing diabetic wound/ulcer failing outpatient treatment. CODE STATUS: Full code DVT prophylaxis: Lovenox Discussed with: patient, RN, in ED physician Anticipated discharge date: clinical course to determine Anticipated discharge place: home Patient was seen independently by Nurse Practitioner. This document was prepared using [employer] dictation software. Please allow for er rors in rod finisher while rare they do occur. I reviewed the documentation as provided by the RIKA above, who is the original author of this note. I agree with the documented assessment and plan, with the following changes: none Past Medical History Past Medical History: Diabetes Mellitus History of Any Multi-Drug Resistant Organisms: None Reported Past Surgical History: Appendectomy Additional Past Surgical History / Comment(s): Appendix taken out at 4 years old. Past Anesthesia/Blood Transfusion Reactions: No Reported Reaction Past Psychological History: No Psychological Hx Reported Past Alcohol Use History: Rare Past Drug Use History: None Reported - Past Family History Father Family Medical History: Diabetes Mellitus, Hypertension Additional Family Medical History / Comment(s): Borderline diabetic - . Medications and Allergies Home Medications Medication Instructions Recorded Confirmed Type Ciclopirox 1 applic TOPICAL HS 09/17/22 09/17/22 History Insulin Aspart [NovoLOG Flexpen] 4 - 14 units SQ TID-W/MEALS 09/17/22 09/17/22 History Insulin Glargine,Hum.rec.anlog 40 units SQ HS 09/17/22 09/17/22 History [Lantus Solostar Pen] Multivitamin [Multivitamins Adult 1 cap PO DAILY 09/17/22 09/17/22 History Gummies] Simvastatin [Zocor] 10 mg PO HS 09/17/22 09/17/22 History lisinopriL [Zestril] 5 mg PO DAILY 09/17/22 09/17/22 History metFORMIN HCL 1,000 mg PO DAILY 09/17/22 09/17/22 History Allergies Allergy/AdvReac Type Severity Reaction Status Date / Time No Known Allergies Allergy Verified 09/17/22 17:15 Physical Exam Vitals: Vital Signs Temp Pulse Resp BP Pulse Ox 09/17/22 17:00 74 18 122/78 100 09/17/22 16:00 74 18 122/74 100 09/17/22 15:26 76 18 125/87 96 09/17/22 13:05 97.8 F 89 20 158/105 98 Intake and Output 09/17/22 09/17/22 09/17/22 06:59 14:59 22:59 Other: Weight 117.934 kg Results CBC & Chem 7: 09/19/22 08:04 09/20/22 06:09 Labs: Abnormal Lab Results - Last 24 Hours (Table) 09/17/22 Range/Units 13:30 Sodium 136 L (137-145) mmol/L Glucose 244 H (74-99) mg/dL C-Reactive Protein 4.0 H (<1.0) mg/dL
[2022-09-17] MEDS ORDERED: DEXTROSE 50% SYRINGE 50 ML IVP PRN ×2 (17:50)
[2022-09-17 20:43] LABS: Glucose,Whole Blood 220 mg/dL (70-110)
[2022-09-17] MEDS: INSULIN ASPART (NovoLOG) 100 UNIT/ML VIAL SQ SCH (20:51)
[2022-09-17] MEDS: INSULIN DETEMIR (LEVEMIR) 100 UNIT/ML SYR SQ SCH (20:52)
[2022-09-17] MEDS: ATORVASTATIN 10 MG TAB PO SCH (20:57)
[2022-09-18] MEDS: VANCOMYCIN 1,750 MG in SODIUM CHLORIDE 0.9% 500 ML 500 ML IVPB SCH ×2 (05:36→18:05)
[2022-09-18 06:28] LABS: African American GFR (CKD) >90 (>60 ml/min/1.73 sqM); Anion Gap 8 mmol/L; Blood Urea Nitrogen 15 mg/dL (9-20); Calcium 8.9 mg/dL (8.4-10.2); Carbon Dioxide 26 mmol/L (22-30); Chloride 103 mmol/L (98-107); Glucose 160 mg/dL (74-99); Non-African American GFR(CKD) >90 (>60 ml/min/1.73 sqM); Potassium 4.6 mmol/L (3.5-5.1); Sodium 137 mmol/L (137-145)
[2022-09-18 07:32] LABS: Glucose,Whole Blood 161 mg/dL (70-110)
[2022-09-18] MEDS: INSULIN ASPART (NovoLOG) 100 UNIT/ML VIAL SQ SCH ×4 (07:38→21:21)
[2022-09-18] MEDS: ENOXAPARIN 40 MG/0.4 ML SYRINGE SQ SCH (09:21)
[2022-09-18] MEDS: MULTIVITAMINS, THERA 1 EACH TAB PO SCH (09:21)
[2022-09-18] MEDS: lisinopriL 5 MG TAB PO SCH (09:21)
[2022-09-18 12:48] LABS: Glucose,Whole Blood 166 mg/dL (70-110)
--- NOTE | 2022-09-18 14:26 | P.CONS ---
History of Present Illness - Reason for Consult Consult date: 09/18/22 Diabetic toe infection. Failed Outpatient Requesting physician: Jamaal Chavez - Chief Complaint Right foot toe swelling and redness x days - History of Present Illness Patient is a 62-year-old male with a past medical history significant for diabetes mellitus hypertension hyperlipidemia apparently the patient stepped on a nail causing a puncture wound on the right big toe happened on 10/05/2022 has been evaluated the outpatient setting and has been treated with oral Keflex and Cipro with the patient completed on 09/15/2022 patient apparently did have a little improvement in the wound on the right big toe and did have persistent pain and swelling and redness for the patient presented to the ER on arrival to the ER the patient was afebrile and no fever has been recorded subsequently, patient been complaining of pain and discomfort to the right big toe morphine and aching pain status and nontender radiation with associated swelling and redness and minimal drainage patient did have a normal white count kidney function has been normal enzymes are normal patient did have local cultures obtained an x-ray of the toe which shows no acute fracture or dislocation or destructive changes patient was started on vancomycin infectious disease was consulted for further management of antibiotic therapy patient did report slight decrease in the pain and discomfort to the right big toe so the patient started on antibiotics Review of Systems Positive point and negatives has been mentioned in the HPI, complete review of systems was performed and all other systems are negative Past Medical History Past Medical History: Diabetes Mellitus History of Any Multi-Drug Resistant Organisms: None Reported Past Surgical History: Appendectomy Additional Past Surgical History / Comment(s): Appendix taken out at 4 years old. Past Anesthesia/Blood Transfusion Reactions: No Reported Reaction Past Psychological History: No Psychological Hx Reported Past Alcohol Use History: Rare Past Drug Use History: None Reported - Past Family History Father Family Medical History: Diabetes Mellitus, Hypertension Additional Family Medical History / Comment(s): Borderline diabetic - . Medications and Allergies Home Medications Medication Instructions Recorded Confirmed Type Ciclopirox 1 applic TOPICAL HS 09/17/22 09/17/22 History Insulin Aspart [NovoLOG Flexpen] 4 - 14 units SQ TID-W/MEALS 09/17/22 09/17/22 History Insulin Glargine,Hum.rec.anlog 40 units SQ HS 09/17/22 09/17/22 History [Lantus Solostar Pen] Multivitamin [Multivitamins Adult 1 cap PO DAILY 09/17/22 09/17/22 History Gummies] Simvastatin [Zocor] 10 mg PO HS 09/17/22 09/17/22 History lisinopriL [Zestril] 5 mg PO DAILY 09/17/22 09/17/22 History metFORMIN HCL 1,000 mg PO DAILY 09/17/22 09/17/22 History Ertapenem [INVanz] 1 gm IVPB Q24H #14 each 09/21/22 Rx HYDROcodone/APAP 5-325MG [[place] 1 each PO Q4HR PRN #188 tab 09/21/22 Rx 5-325] amLODIPine [Norvasc] 5 mg PO DAILY 30 Days #30 tab 09/21/22 Rx Allergies Allergy/AdvReac Type Severity Reaction Status Date / Time No Known Allergies Allergy Verified 09/17/22 17:15 Physical Exam Vitals: Vital Signs Temp Pulse Resp BP Pulse Ox 09/18/22 07:18 70 16 163/99 98 09/18/22 05:00 98 F 70 18 155/97 98 09/17/22 22:13 98.7 F 74 18 149/64 98 09/17/22 20:00 72 18 143/89 100 09/17/22 19:40 74 18 118/86 98 09/17/22 18:53 76 18 126/78 100 09/17/22 17:00 74 18 122/78 100 09/17/22 16:00 74 18 122/74 100 09/17/22 15:26 76 18 125/87 96 09/17/22 13:05 97.8 F 89 20 158/105 98 Middle-age male lying in bed in no distress Lungs clear to auscultation Heart S1-S2 regular rate and rhythm Abdominal soft no tenderness Right big toe did have a swelling and redness with a wound on the plantar aspect some foul-smelling Exam completed with the help of CANOE INSPECTOR FINAL Results CBC & Chem 7: 09/21/22 06:46 09/21/22 06:46 Labs: Abnormal Lab Results - Last 24 Hours (Table) 09/17/22 09/17/22 09/18/22 Range/Units 13:30 20:41 05:15 Sodium 136 L (137-145) mmol/L Glucose 244 H (74-99) mg/dL POC Glucose (mg/dL) 220 H (70-110) mg/dL Hemoglobin A1c 8.1 H (<=6.0) % C-Reactive Protein 4.0 H (<1.0) mg/dL 09/18/22 09/18/22 Range/Units 05:15 07:31 Sodium (137-145) mmol/L Glucose 160 H (74-99) mg/dL POC Glucose (mg/dL) 161 H (70-110) mg/dL Hemoglobin A1c (<=6.0) % C-Reactive Protein (<1.0) mg/dL Microbiology - Last 24 Hours (Table) 09/17/22 13:30 Gram Stain - Preliminary Toe - Right First Assessment and Plan (1) Diabetic foot ulcer Status: Acute Code(s): E11.621 - TYPE 2 DIABETES MELLITUS WITH FOOT ULCER; L97.509 - NON-PRESSURE CHRONIC ULCER OTH PRT UNSP FOOT W UNSP SEVERITY SNOMED Code(s): 167728800 (2) Cellulitis of great toe, right Status: Acute Code(s): L03.031 - CELLULITIS OF RIGHT TOE SNOMED Code(s): 95322713 Plan: This was a telehealth Visit 1-Patient with right big toe diabetic foot infection in this patient with a wound on the plantar aspect of the second cellulitis failing outpatient oral Cipro and Keflex therapy possible related to burden of disease x-rays were negative for any bony changes 2-local cultures obtained we will check inflammatory markers 3-continue the vancomycin pharmacy to dose local care with right Change daily We will follow on clinical condition and cultures to further adjust medication if needed Thank you for this consultation we will follow the patient along with you Time with Patient: Greater than 30
[2022-09-18 17:36] LABS: Glucose,Whole Blood 147 mg/dL (70-110)
--- NOTE | 2022-09-18 17:50 | P.PN ---
Subjective Progress Note Date: 09/18/22 Hospital course: Patient is a very pleasant 62-year-old male with a past medical history of insulin-dependent diabetes mellitus, hypertension, and hyperlipidemia.. He presented to the emergency department secondary to concerns of nonhealing diabetic wound to right great toe. Patient reports on 09/05/22 he stepped on a nail causing a puncture wound of right great toe. Patient reports that this time he was evaluated at the urgent care center where wound was thoroughly cleaned and he was started on a 10 day course of ciprofloxacin and Keflex in which she completed on 09/15/22 with little improvement in wound of right great toe. Patient states that he was instructed if he did not have improvement he will need to come to the emergency department for evaluation due to nonhealing diabetic wound. Patient reports that he has noticed his blood glucose levels have been elevated at home. He denies any known fevers, chills, diaphoresis, chest pain, palpitations, shortness of breath, nausea, vomiting, abdominal pain, difficulties with her changes in his urination, or experiencing any numbness/tingling/weakness in his extremities. Patient reports last TDAP was in 2019. He underwent full evaluation in the emergency department. Vital signs evaluated. Blood pressure 158/105, heart rate 89, respiratory rate 20, SpO2 98% on room air with temp 97.8F. CBC unremarkable with WBC count of 9.3. BMP showing elevated glucose of 244. Liver enzymes normal findings. CRP elevated at 4.0. X-ray right foot negative for acute fracture or dislocation showing no distracted changes, no metallic foreign bodies noted, with indeterminant tiny punctuate densities along the plantar surface of the DIP joint. Discussed patient presentation, physical exam findings, laboratory analysis, and imaging results in detail with the ED physician. Patient to be started on vancomycin and will be admitted under our services with consultation to infectious disease. Physical exam: Patient seen and fully evaluated at bedside this morning. also at bedside visiting at this time. Patient reports he feels slight improvement in swelling by redness and swelling remained. Patient read great toe and foot has been wrapped in dressing is currently clean, dry, and intact. Vital signs reviewed and stable. General: Nontoxic, no distress and appears stated age. Derm: Skin warm and dry, normal coloration for ethnicity. patient with moderate swelling and erythema of right great toe with wound/ulcer to pedal surface of the base of his right great toe with clear yellow drainage. Head: Atraumatic, normocephalic and symmetric. Eyes: EOMs intact, no lid lag, and anicteric sclera Mouth: no lip lesions, mucus membranes moist Cardiovascular: regular rate and rhythm with normal S1S2, no murmur, positive posterior tibial pulses bilaterally, and cap refill < 2 seconds. Lungs: Respirations even, regular, and unlabored on room air. Lungs CTA bilaterally, no rhonchi, no rales, no wheezing, and no accessory muscle usage. Abdominal: soft, nontender to palpation, no guarding, no appreciable organomegaly Ext: ROM intact. No gross muscle atrophy, no edema, no contractures Neuro: Speech clear, face symmetrical and CN II-XII grossly intact with no noted focal neuro deficits Psych: Alert and oriented to person, place, time, and situation. Appropriate and pleasant affect. Assessment and Plan of Care: Infected diabetic wound with surrounding cellulitis, failed outpatient treatmen t with antibiotics Insulin-dependent diabetes mellitus with hyperglycemia -Vital signs evaluated. Blood pressure 155/97, heart rate 70, respiratory rate 18, SpO2 of 98% on room air with temp of 98.0F. -Labs completed and reviewed. BMP showing stable renal function with BUN of 15, creatinine 0.71, and GFR greater than 90 showing no signs of vancomycin associated toxicity. -Infectious disease following, reviewed documentation in chart. -Discussed patient presentation, physical exam findings, laboratory analysis, and imaging results in detail with the ED physician. -Patient to be admitted under our services with consultation to infectious disease. -Continue IV antibiotics with vancomycin 1750 mg every 12 hours. -We will follow up on repeat morning CBC to monitor for any signs/symptoms of leukocytosis and BMP to monitor renal function closely for any signs of vancomycin associated toxicity. -Patient to continue Glycemic protocol. Patient to continue with Levemir 40 units nightly and placed on NovoLog sliding scale. -Hemoglobin A1c 8.1% -Awaiting blood culture and wound culture results. Hypertension Patient to continue daily medication regimen with lisinopril 5 mg daily. Patient started on amlodipine 5 mg daily in addition to lisinopril 5 mg daily. If no improvement will increase dose of lisinopril tomorrow. Hyperlipidemia Patient to continue daily medication regimen with atorvastatin 10 mg nightly. CODE STATUS: Full code DVT prophylaxis: Lovenox Discussed with: patient, RN, in ED physician Anticipated discharge date: clinical course to determine Anticipated discharge place: home Patient was seen independently by Nurse Practitioner. This document was prepared using Adly dictation software. Please allow for errors in assistant cross country coach while rare they do occur. I reviewed the documentation as provided by the RIKA above, who is the original author of this note. I agree with the documented assessment and plan, with the following changes: none Objective - Vital Signs Vital signs: Vital Signs Temp 98 F 09/18/22 05:00 Pulse 70 09/18/22 07:18 Resp 16 09/18/22 07:18 BP 163/99 09/18/22 07:18 Pulse Ox 98 09/18/22 07:18 FiO2 Intake & Output 09/17/22 09/18/22 09/18/22 18:59 06:59 18:59 Weight 117.934 kg - Labs CBC & Chem 7: 09/19/22 08:04 09/20/22 06:09 Labs: Abnormal Lab Results - Last 24 Hours (Table) 09/17/22 09/17/22 09/18/22 Range/Units 13:30 20:41 05:15 Sodium 136 L (137-145) mmol/L Glucose 244 H (74-99) mg/dL POC Glucose (mg/dL) 220 H (70-110) mg/dL Hemoglobin A1c 8.1 H (<=6.0) % C-Reactive Protein 4.0 H (<1.0) mg/dL 09/18/22 09/18/22 Range/Units 05:15 07:31 Sodium (137-145) mmol/L Glucose 160 H (74-99) mg/dL POC Glucose (mg/dL) 161 H (70-110) mg/dL Hemoglobin A1c (<=6.0) % C-Reactive Protein (<1.0) mg/dL Microbiology - Last 24 Hours (Table) 09/17/22 13:30 Gram Stain - Preliminary Toe - Right First
[2022-09-18] MEDS: amLODIPine 5 MG TAB PO SCH (18:05)
[2022-09-18 20:29] LABS: Glucose,Whole Blood 225 mg/dL (70-110)
[2022-09-18] MEDS: ATORVASTATIN 10 MG TAB PO SCH (21:17)
[2022-09-18] MEDS: INSULIN DETEMIR (LEVEMIR) 100 UNIT/ML SYR SQ SCH (21:18)
[2022-09-19] MEDS: VANCOMYCIN 1,750 MG in SODIUM CHLORIDE 0.9% 500 ML 500 ML IVPB SCH ×2 (05:52→17:54)
[2022-09-19 08:02] LABS: Glucose,Whole Blood 162 mg/dL (70-110)
[2022-09-19] MEDS: ENOXAPARIN 40 MG/0.4 ML SYRINGE SQ SCH (08:21)
[2022-09-19] MEDS: MULTIVITAMINS, THERA 1 EACH TAB PO SCH (08:21)
[2022-09-19] MEDS: amLODIPine 5 MG TAB PO SCH (08:21)
[2022-09-19] MEDS: lisinopriL 5 MG TAB PO SCH (08:21)
[2022-09-19] MEDS: INSULIN ASPART (NovoLOG) 100 UNIT/ML VIAL SQ SCH ×4 (08:21→21:18)
[2022-09-19 12:13] LABS: Glucose,Whole Blood 173 mg/dL (70-110)
[2022-09-19 13:49] LABS: ALT 22 U/L (10-49); AST 13 U/L (14-35); Albumin 3.7 d/dL (3.8-4.9); Albumin/Globulin Ratio 1.54 Ratio (1.60-3.17); Alkaline Phosphatase 78 U/L (41-126); Blood Urea Nitrogen 13.2 mg/dL (9.0-27.0); Calcium 9.2 mg/dL (8.7-10.3); Carbon Dioxide 23.4 mmol/L (21.6-31.8); Chloride 105 mmol/L (96-109); Globulin 2.4 d/dL (1.6-3.3); Glucose 154 mg/dL (70-110); Potassium 4.4 mmol/L (3.5-5.5); Sodium 140 mmol/L (135-145); Total Bilirubin 0.5 mg/dL (0.3-1.2); Total Protein 6.1 d/dL (6.2-8.2)
[2022-09-19 13:56] LABS: Basophils # (A) 0.05 X 10*3/uL (0.00-0.10); Basophils % (A) 0.8 %; Eosinophils # (A) 0.29 X 10*3/uL (0.04-0.35); Eosinophils % (A) 4.5 %; HCT 46.2 % (39.6-50.0); HGB 15.5 d/dL (12.0-15.0); Lymphocytes % (A) 31.1 %; MCH 29.9 pg (27.0-32.0); MCHC 33.5 d/dL (32.0-37.0); Monocytes # (A) 0.43 X 10*3/uL (0.20-1.00); Monocytes % (A) 6.7 %; NRBC Per 100 WBC 0 X 10*3/uL (0.00-0.01); Neutrophils # (A) 3.62 X 10*3/uL (1.80-7.70); Neutrophils % (A) 56.3 %; Platelet Count 178 X 10*3/uL (140-440); RBC 5.19 X 10*6/uL (4.40-5.60); WBC 6.43 X 10*3/uL (4.50-10.00)
--- NOTE | 2022-09-19 15:15 | P.PN ---
Subjective Progress Note Date: 09/19/22 Hospital course: Patient is a very pleasant 62-year-old male with a past medical history of insulin-dependent diabetes mellitus, hypertension, and hyperlipidemia.. He presented to the emergency department secondary to concerns of nonhealing diabetic wound to right great toe. Patient reports on 09/05/22 he stepped on a nail causing a puncture wound of right great toe. Patient reports that this time he was evaluated at the urgent care center where wound was thoroughly cleaned and he was started on a 10 day course of ciprofloxacin and Keflex in which she completed on 09/15/22 with little improvement in wound of right great toe. Patient states that he was instructed if he did not have improvement he will need to come to the emergency department for evaluation due to nonhealing diabetic wound. Patient reports that he has noticed his blood glucose levels have been elevated at home. He denies any known fevers, chills, diaphoresis, chest pain, palpitations, shortness of breath, nausea, vomiting, abdominal pain, difficulties with her changes in his urination, or experiencing any numbness/tingling/weakness in his extremities. Patient reports last TDAP was in 2019. He underwent full evaluation in the emergency department. Vital signs evaluated. Blood pressure 158/105, heart rate 89, respiratory rate 20, SpO2 98% on room air with temp 97.8F. CBC unremarkable with WBC count of 9.3. BMP showing elevated glucose of 244. Liver enzymes normal findings. CRP elevated at 4.0. X-ray right foot negative for acute fracture or dislocation showing no distracted changes, no metallic foreign bodies noted, with indeterminant tiny punctuate densities along the plantar surface of the DIP joint. Discussed patient presentation, physical exam findings, laboratory analysis, and imaging results in detail with the ED physician. Patient to be started on vancomycin and will be admitted under our services with consultation to infectious disease. Physical exam: Patient seen and fully evaluated at bedside this morning. also at bedside visiting at this time. Patient reports he feels slight improvement in swelling by redness and swelling remained. Patient read great toe and foot has been wrapped in dressing is currently clean, dry, and intact. Vital signs reviewed and stable. General: Nontoxic, no distress and appears stated age. Derm: Skin warm and dry, normal coloration for ethnicity. patient with moderate swelling and erythema of right great toe with wound/ulcer to pedal surface of the base of his right great toe with clear yellow drainage. Head: Atraumatic, normocephalic and symmetric. Eyes: EOMs intact, no lid lag, and anicteric sclera Mouth: no lip lesions, mucus membranes moist Cardiovascular: regular rate and rhythm with normal S1S2, no murmur, positive posterior tibial pulses bilaterally, and cap refill < 2 seconds. Lungs: Respirations even, regular, and unlabored on room air. Lungs CTA bilaterally, no rhonchi, no rales, no wheezing, and no accessory muscle usage. Abdominal: soft, nontender to palpation, no guarding, no appreciable organomegaly Ext: ROM intact. No gross muscle atrophy, no edema, no contractures Neuro: Speech clear, face symmetrical and CN II-XII grossly intact with no noted focal neuro deficits Psych: Alert and oriented to person, place, time, and situation. Appropriate and pleasant affect. Assessment and Plan of Care: Infected diabetic wound with surrounding cellulitis, failed outpatient treatmen t with antibiotics Insulin-dependent diabetes mellitus with hyperglycemia -Labs completed and reviewed. CBC remains unremarkable with WBC count 6.43, hemoglobin of 15.5, and platelet count of 178. BMP also normal findings with the exception of slightly elevated glucose of 154. Inflammatory markers elevated with CRP of 2.00. -Blood cultures showing no growth to date. -Wound cultures pending. -Infectious disease following, reviewed documentation in chart. -Continue IV antibiotics with vancomycin 1750 mg every 12 hours. -We will follow up on repeat morning CBC to monitor for any signs/symptoms of leukocytosis and BMP to monitor renal function closely for any signs of vancomycin associated toxicity. -Patient to continue Glycemic protocol. Patient to continue with Levemir 40 units nightly and placed on NovoLog sliding scale. -Hemoglobin A1c 8.1% -Awaiting blood culture and wound culture results. Hypertension Patient to continue daily medication regimen with lisinopril 5 mg daily and a mlodipine 5 mg daily. Vital signs reviewed. Blood pressure 125/86, heart rate 72, respiratory rate 16, SpO2 of 98% on room air with temp 98.8F. Hyperlipidemia Patient to continue daily medication regimen with atorvastatin 10 mg nightly. CODE STATUS: Full code DVT prophylaxis: Lovenox Discussed with: patient and RN Anticipated discharge date: clinical course to determine Anticipated discharge place: Home Patient was seen independently by Nurse Practitioner. This document was prepared using Dragon dictation software. Please allow for errors in wallpaper embosser helper while rare they do occur. I reviewed the documentation as provided by the RIKA above, who is the original author of this note. I agree with the documented assessment and plan, with the following changes: none Objective - Vital Signs Vital signs: Vital Signs Temp 98.1 F 09/19/22 03:00 Pulse 68 09/19/22 03:00 Resp 18 09/19/22 03:00 BP 120/72 09/19/22 03:00 Pulse Ox 96 09/19/22 03:00 FiO2 Intake & Output 09/18/22 09/19/22 09/19/22 18:59 06:59 18:59 Intake Total 1120 120 Balance 1120 120 Weight 117.934 kg Intake: Intake, IV Titration 1000 Amount Vancomycin 1,750 mg In 1000 Sodium Chloride 0.9% 500 ml 500 ml @ 167 mls/hr IVPB Q12H [facility] Rx#: [id number] Oral 120 120 Other: # Voids 2 - Labs CBC & Chem 7: 09/19/22 08:04 09/20/22 06:09 Labs: Abnormal Lab Results - Last 24 Hours (Table) 09/18/22 09/18/22 09/18/22 Range/Units 05:15 12:47 17:35 POC Glucose (mg/dL) 166 H 147 H (70-110) mg/dL Hemoglobin A1c 8.1 H (<=6.0) % 09/18/22 09/19/22 Range/Units 20:25 08:01 POC Glucose (mg/dL) 225 H 162 H (70-110) mg/dL Hemoglobin A1c (<=6.0) % Microbiology - Last 24 Hours (Table) 09/17/22 15:30 Blood Culture - Preliminary Blood 09/17/22 15:00 Blood Culture - Preliminary Blood 09/17/22 13:30 Gram Stain - Preliminary Toe - Right First
[2022-09-19 17:21] LABS: Glucose,Whole Blood 261 mg/dL (70-110)
[2022-09-19 17:41] LABS: Erythrocyte Sedimentation Rate 42 mm/Hr (0-20)
[2022-09-19 20:18] LABS: Glucose,Whole Blood 190 mg/dL (70-110)
[2022-09-19] MEDS: INSULIN DETEMIR (LEVEMIR) 100 UNIT/ML SYR SQ SCH (21:18)
[2022-09-19] MEDS: ATORVASTATIN 10 MG TAB PO SCH (21:18)
[2022-09-20] MEDS ORDERED: VANCOMYCIN TROUGH DUE 1 EACH MISC MISCELLANE ONE (05:00)
[2022-09-20] MEDS: VANCOMYCIN 1,750 MG in SODIUM CHLORIDE 0.9% 500 ML 500 ML IVPB SCH ×2 (06:27→17:41)
[2022-09-20 07:05] LABS: African American GFR (CKD) >90 (>60 ml/min/1.73 sqM); Non-African American GFR(CKD) >90 (>60 ml/min/1.73 sqM)
[2022-09-20 07:12] LABS: Glucose,Whole Blood 128 mg/dL (70-110)
[2022-09-20] MEDS: INSULIN ASPART (NovoLOG) 100 UNIT/ML VIAL SQ SCH ×4 (07:45→20:56)
[2022-09-20] MEDS: lisinopriL 5 MG TAB PO SCH (08:14)
[2022-09-20] MEDS: MULTIVITAMINS, THERA 1 EACH TAB PO SCH (08:14)
[2022-09-20] MEDS: ENOXAPARIN 40 MG/0.4 ML SYRINGE SQ SCH (08:14)
[2022-09-20] MEDS: amLODIPine 5 MG TAB PO SCH (08:14)
--- NOTE | 2022-09-20 09:44 | P.PN ---
Subjective Progress Note Date: 09/19/22 Principal diagnosis: R big toe diabetic foot infection Patient is a 62-year-old male with a past medical history significant for diabetes mellitus hypertension hyperlipidemia apparently the patient stepped on a nail causing a puncture wound on the right big toe happened on 10/05/2022, Patient failed outpatient oral Keflex and Cipro therapy x-ray did not show any bony abnormality. On today's evaluation that is 09/19/2022 patient denies having any fever or any chills patient is breathing comfortably no chest pain shortness of breath or cough no abdominal pain oral pain swelling and redness to the right great toe has decreased in intensity did have minimal drainage Objective - Vital Signs Vital signs: Vital Signs Temp 99 F 09/19/22 19:01 Pulse 77 09/19/22 19:01 Resp 18 09/19/22 19:01 BP 106/68 09/19/22 19:01 Pulse Ox 96 09/19/22 19:01 FiO2 Intake & Output 09/19/22 09/19/22 09/20/22 06:59 18:59 06:59 Intake Total 620 Balance 620 Intake: Intake, IV Titration 500 Amount Vancomycin 1,750 mg In 500 Sodium Chloride 0.9% 500 ml 500 ml @ 167 mls/hr IVPB Q12H [facility] Rx#: [id number] Oral 120 Other: # Voids 2 - Exam GENERAL DESCRIPTION: Middle-age male lying in bed in no distress RESPIRATORY SYSTEM: Unlabored breathing , decreased breath sounds at bases HEART: S1 S2 regular rate and rhythm ,no loud murmurs ABDOMEN: Soft , no tenderness EXTREMITIES: Right big toe did have a wound on the plantar aspect with minimal purulent drainage overall swelling and redness has decreased comparing to the previous picture taken - Labs CBC & Chem 7: 09/19/22 08:04 09/20/22 06:09 Labs: Abnormal Lab Results - Last 24 Hours (Table) 09/18/22 09/19/22 09/19/22 Range/Units 20:25 08:01 08:04 Hgb 15.5 H (12.0-15.0) d/dL ESR 42 H (0-20) mm/Hr Glucose (70-110) mg/dL POC Glucose (mg/dL) 225 H 162 H (70-110) mg/dL AST (14-35) U/L C-Reactive Protein (0.00-0.80) mg/dL Total Protein (6.2-8.2) d/dL Albumin (3.8-4.9) d/dL Albumin/Globulin Ratio (1.60-3.17) Ratio 09/19/22 09/19/22 09/19/22 Range/Units 08:04 12:12 17:20 Hgb (12.0-15.0) d/dL ESR (0-20) mm/Hr Glucose 154 H (70-110) mg/dL POC Glucose (mg/dL) 173 H 261 H (70-110) mg/dL AST 13 L (14-35) U/L C-Reactive Protein 2.00 H (0.00-0.80) mg/dL Total Protein 6.1 L (6.2-8.2) d/dL Albumin 3.7 L (3.8-4.9) d/dL Albumin/Globulin Ratio 1.54 L (1.60-3.17) Ratio Microbiology - Last 24 Hours (Table) 09/17/22 15:30 Blood Culture - Preliminary Blood 09/17/22 15:00 Blood Culture - Preliminary Blood Assessment and Plan (1) Cellulitis of great toe, right Current Visit: Yes Status: Acute Code(s): L03.031 - CELLULITIS OF RIGHT TOE SNOMED Code(s): 49846743 (2) Failure of outpatient treatment Current Visit: Yes Status: Acute Code(s): Z78.9 - OTHER SPECIFIED HEALTH STATUS SNOMED Code(s): 399090406 Plan: 1-Patient with right big toe diabetic foot infection in this patient with a wound on the plantar aspect of the second cellulitis failing outpatient oral Cipro and Keflex therapy possible related to burden of disease x-rays were negative for any bony changes 2-local cultures obtained which are pending , did have a ESR of 42 3-Pt to continue the vancomycin pharmacy to dose while waiting for cultures to finalize Time with Patient: Less than 30
[2022-09-20] MEDS: AMPICILLIN-SULBACTAM 3 GM in SODIUM CHLORIDE 0.9% 100 ML IVPB SCH ×2 (11:38→17:18)
[2022-09-20 11:51] LABS: Glucose,Whole Blood 217 mg/dL (70-110)
[2022-09-20 13:49] VITALS: RESP 18
--- NOTE | 2022-09-20 14:33 | P.PN ---
Subjective Progress Note Date: 09/20/22 Principal diagnosis: R big toe diabetic foot infection Patient is a 62-year-old male with a past medical history significant for diabetes mellitus hypertension hyperlipidemia apparently the patient stepped on a nail causing a puncture wound on the right big toe happened on 10/05/2022, Patient failed outpatient oral Keflex and Cipro therapy x-ray did not show any bony abnormality. On today's evaluation that is 09/20/2022 patient remains to be afebrile patient is breathing comfortably no chest pain shortness of breath or cough no abdominal pain oral pain swelling and redness to the right great toe has decreased in intensity did have minimal drainage Objective - Vital Signs Vital signs: Vital Signs Temp 98.7 F 09/20/22 07:12 Pulse 66 09/20/22 07:12 Resp 16 09/20/22 07:12 BP 136/80 09/20/22 07:12 Pulse Ox 97 09/20/22 07:12 FiO2 Intake & Output 09/19/22 09/20/22 09/20/22 18:59 06:59 18:59 Intake Total 620 600 Balance 620 600 Intake: Intake, IV Titration 500 Amount Vancomycin 1,750 mg In 500 Sodium Chloride 0.9% 500 ml 500 ml @ 167 mls/hr IVPB Q12H [facility] Rx#: [id number] Oral 120 600 Other: Voiding Method Toilet Toilet - Exam GENERAL DESCRIPTION: Middle-age male lying in bed in no distress RESPIRATORY SYSTEM: Unlabored breathing , decreased breath sounds at bases HEART: S1 S2 regular rate and rhythm ,no loud murmurs ABDOMEN: Soft , no tenderness EXTREMITIES: Right big toe did have a wound on the plantar aspect with minimal purulent drainage overall swelling and redness has decreased comparing to the previous picture taken - Labs CBC & Chem 7: 09/19/22 08:04 09/20/22 06:09 Labs: Abnormal Lab Results - Last 24 Hours (Table) 09/19/22 09/19/22 09/19/22 Range/Units 08:04 08:04 12:12 Hgb 15.5 H (12.0-15.0) d/dL ESR 42 H (0-20) mm/Hr Glucose 154 H (70-110) mg/dL POC Glucose (mg/dL) 173 H (70-110) mg/dL AST 13 L (14-35) U/L C-Reactive Protein 2.00 H (0.00-0.80) mg/dL Total Protein 6.1 L (6.2-8.2) d/dL Albumin 3.7 L (3.8-4.9) d/dL Albumin/Globulin Ratio 1.54 L (1.60-3.17) Ratio 09/19/22 09/19/22 09/20/22 Range/Units 17:20 20:16 07:11 Hgb (12.0-15.0) d/dL ESR (0-20) mm/Hr Glucose (70-110) mg/dL POC Glucose (mg/dL) 261 H 190 H 128 H (70-110) mg/dL AST (14-35) U/L C-Reactive Protein (0.00-0.80) mg/dL Total Protein (6.2-8.2) d/dL Albumin (3.8-4.9) d/dL Albumin/Globulin Ratio (1.60-3.17) Ratio 09/20/22 Range/Units 11:49 Hgb (12.0-15.0) d/dL ESR (0-20) mm/Hr Glucose (70-110) mg/dL POC Glucose (mg/dL) 217 H (70-110) mg/dL AST (14-35) U/L C-Reactive Protein (0.00-0.80) mg/dL Total Protein (6.2-8.2) d/dL Albumin (3.8-4.9) d/dL Albumin/Globulin Ratio (1.60-3.17) Ratio Microbiology - Last 24 Hours (Table) 09/17/22 15:30 Blood Culture - Preliminary Blood 09/17/22 15:00 Blood Culture - Preliminary Blood Assessment and Plan (1) Cellulitis of great toe, right Current Visit: Yes Status: Acute Code(s): L03.031 - CELLULITIS OF RIGHT TOE SNOMED Code(s): 42158967 (2) Failure of outpatient treatment Current Visit: Yes Status: Acute Code(s): Z78.9 - OTHER SPECIFIED HEALTH STATUS SNOMED Code(s): 424642185 Plan: 1-Patient with right big toe diabetic foot infection in this patient with a wound on the plantar aspect of the second cellulitis failing outpatient oral Cipro and Keflex therapy possible related to burden of disease x-rays were negative for any bony changes 2-local cultures obtained which are pending , did have a ESR of 42 3-patient cultures are currently pending did have improvement in his cellulitis. Continue vancomycin will add Unasyn with discharge antibiotics on the base of culture Time with Patient: Less than 30
--- NOTE | 2022-09-20 14:50 | P.PN ---
Subjective Progress Note Date: 09/20/22 Hospital course: Patient is a very pleasant 62-year-old male with a past medical history of insulin-dependent diabetes mellitus, hypertension, and hyperlipidemia.. He presented to the emergency department secondary to concerns of nonhealing diabetic wound to right great toe. Patient reports on 09/05/22 he stepped on a nail causing a puncture wound of right great toe. Patient reports that this time he was evaluated at the urgent care center where wound was thoroughly cleaned and he was started on a 10 day course of ciprofloxacin and Keflex in which she completed on 09/15/22 with little improvement in wound of right great toe. Patient states that he was instructed if he did not have improvement he will need to come to the emergency department for evaluation due to nonhealing diabetic wound. Patient reports that he has noticed his blood glucose levels have been elevated at home. He denies any known fevers, chills, diaphoresis, chest pain, palpitations, shortness of breath, nausea, vomiting, abdominal pain, difficulties with her changes in his urination, or experiencing any numbness/tingling/weakness in his extremities. Patient reports last TDAP was in 2019. He underwent full evaluation in the emergency department. Vital signs evaluated. Blood pressure 158/105, heart rate 89, respiratory rate 20, SpO2 98% on room air with temp 97.8F. CBC unremarkable with WBC count of 9.3. BMP showing elevated glucose of 244. Liver enzymes normal findings. CRP elevated at 4.0. X-ray right foot negative for acute fracture or dislocation showing no distracted changes, no metallic foreign bodies noted, with indeterminant tiny punctuate densities along the plantar surface of the DIP joint. Discussed patient presentation, physical exam findings, laboratory analysis, and imaging results in detail with the ED physician. Patient started on IV antibiotics and admitted under services of consultation to infectious disease. Physical exam: Patient seen and fully evaluated at bedside this morning. He denies having any needs, complaints, questions, or concerns. Patient updated that we are awaiting culture results. Vital signs reviewed and stable. General: Nontoxic, no distress and appears stated age. Derm: Skin warm and dry, normal coloration for ethnicity. patient with moderate swelling and erythema of right great toe with wound/ulcer to pedal surface of the base of his right great toe with clear yellow drainage. Head: Atraumatic, normocephalic and symmetric. Eyes: EOMs intact, no lid lag, and anicteric sclera Mouth: no lip lesions, mucus membranes moist Cardiovascular: regular rate and rhythm with normal S1S2, no murmur, positive posterior tibial pulses bilaterally, and cap refill < 2 seconds. Lungs: Respirations even, regular, and unlabored on room air. Lungs CTA bilaterally, no rhonchi, no rales, no wheezing, and no accessory muscle usage. Abdominal: soft, nontender to palpation, no guarding, no appreciable organomegaly Ext: ROM intact. No gross muscle atrophy, no edema, no contractures Neuro: Speech clear, face symmetrical and CN II-XII grossly intact with no noted focal neuro deficits Psych: Alert and oriented to person, place, time, and situation. Appropriate and pleasant affect. Assessment and Plan of Care: Infected diabetic wound with surrounding cellulitis, failed outpatient treatment with antibiotics Insulin-dependent diabetes mellitus with hyperglycemia -Morning Labs completed and reviewed. Vancomycin trough therapeutic at 11.8 and renal function remains stable with a creatinine of 0.80. ESR elevated at 42. ESR has improved from 4.0 upon arrival down to 2.00. -Blood cultures showing no growth to date. -Wound cultures remain pending. -Infectious disease following, discussed plan of care with Dr. Tenorio and further recommendations pending culture results. -Continue IV antibiotics with vancomycin 1750 mg every 12 hours An infectious disease added on Unasyn 3 g every 6 hours. -We will follow up on repeat morning CBC to monitor for any signs/symptoms of leukocytosis and BMP to monitor renal function closely for any signs of vancomycin associated toxicity. We are also placed for ESR level to continue to monitor for improvement. -Patient to continue Glycemic protocol. Patient to continue with Levemir 40 units nightly and placed on NovoLog sliding scale. -Hemoglobin A1c 8.1% -Awaiting blood culture and wound culture results. Hypertension Patient to continue daily medication regimen with lisinopril 5 mg daily and amlodipine 5 mg daily. Vital signs reviewed. Blood pressure 136/80, heart rate 66, respiratory rate 16, temperature 98.7F and SpO2 of 97% on room air. Hyperlipidemia Patient to continue daily medication regimen with atorvastatin 10 mg nightly. CODE STATUS: Full code DVT prophylaxis: Lovenox Discussed with: patient, infectious disease physician and RN Anticipated discharge date: clinical course to determine Anticipated discharge place: Home Patient was seen independently by Nurse Practitioner. This document was prepared using [employer] dictation software. Please allow for errors in typewriter mechanic while rare they do occur. I reviewed the documentation as provided by the RIKA above, who is the original author of this note. I agree with the documented assessment and plan, with the following changes: none Objective - Vital Signs Vital signs: Vital Signs Temp 98.7 F 09/20/22 07:12 Pulse 66 09/20/22 07:12 Resp 16 09/20/22 07:12 BP 136/80 09/20/22 07:12 Pulse Ox 97 09/20/22 07:12 FiO2 Intake & Output 09/19/22 09/20/22 09/20/22 18:59 06:59 18:59 Intake Total 620 600 Balance 620 600 Intake: Intake, IV Titration 500 Amount Vancomycin 1,750 mg In 500 Sodium Chloride 0.9% 500 ml 500 ml @ 167 mls/hr IVPB Q12H [facility] Rx#: [id number] Oral 120 600 Other: Voiding Method Toilet Toilet - Labs CBC & Chem 7: 09/19/22 08:04 09/20/22 06:09 Labs: Abnormal Lab Results - Last 24 Hours (Table) 09/19/22 09/19/22 09/19/22 Range/Units 08:04 08:04 12:12 Hgb 15.5 H (12.0-15.0) d/dL ESR 42 H (0-20) mm/Hr Glucose 154 H (70-110) mg/dL POC Glucose (mg/dL) 173 H (70-110) mg/dL AST 13 L (14-35) U/L C-Reactive Protein 2.00 H (0.00-0.80) mg/dL Total Protein 6.1 L (6.2-8.2) d/dL Albumin 3.7 L (3.8-4.9) d/dL Albumin/Globulin Ratio 1.54 L (1.60-3.17) Ratio 09/19/22 09/19/22 09/20/22 Range/Units 17:20 20:16 07:11 Hgb (12.0-15.0) d/dL ESR (0-20) mm/Hr Glucose (70-110) mg/dL POC Glucose (mg/dL) 261 H 190 H 128 H (70-110) mg/dL AST (14-35) U/L C-Reactive Protein (0.00-0.80) mg/dL Total Protein (6.2-8.2) d/dL Albumin (3.8-4.9) d/dL Albumin/Globulin Ratio (1.60-3.17) Ratio Microbiology - Last 24 Hours (Table) 09/17/22 15:30 Blood Culture - Preliminary Blood 09/17/22 15:00 Blood Culture - Preliminary Blood
[2022-09-20 17:15] LABS: Glucose,Whole Blood 176 mg/dL (70-110)
[2022-09-20 20:15] LABS: Glucose,Whole Blood 277 mg/dL (70-110)
[2022-09-20] MEDS: INSULIN DETEMIR (LEVEMIR) 100 UNIT/ML SYR SQ SCH (20:55)
[2022-09-20] MEDS: ATORVASTATIN 10 MG TAB PO SCH (20:56)
[2022-09-21] MEDS: AMPICILLIN-SULBACTAM 3 GM in SODIUM CHLORIDE 0.9% 100 ML IVPB SCH ×4 (06:05→12:37)
[2022-09-21] MEDS: VANCOMYCIN 1,750 MG in SODIUM CHLORIDE 0.9% 500 ML 500 ML IVPB SCH (06:05)
[2022-09-21 07:20] LABS: Glucose,Whole Blood 162 mg/dL (70-110)
[2022-09-21] MEDS: ENOXAPARIN 40 MG/0.4 ML SYRINGE SQ SCH (08:22)
[2022-09-21] MEDS: INSULIN ASPART (NovoLOG) 100 UNIT/ML VIAL SQ SCH ×3 (08:22→18:01)
[2022-09-21] MEDS: MULTIVITAMINS, THERA 1 EACH TAB PO SCH (08:22)
[2022-09-21] MEDS: amLODIPine 5 MG TAB PO SCH (08:22)
[2022-09-21] MEDS: lisinopriL 5 MG TAB PO SCH (08:23)
[2022-09-21 11:30] LABS: HGB 15.4 d/dL (12.0-15.0); MCH 30.3 pg (27.0-32.0); MCHC 34.2 d/dL (32.0-37.0); MCV 88.4 FL (80.0-97.0); Mean Platelet Volume 11.4 FL (9.5-12.2); NRBC Per 100 WBC 0 X 10*3/uL (0.00-0.01); Platelet Count 193 X 10*3/uL (140-440); RBC 5.09 X 10*6/uL (4.40-5.60); RDW 11.9 % (11.5-14.5); WBC 6.83 X 10*3/uL (4.50-10.00)
[2022-09-21 11:51] LABS: Blood Urea Nitrogen 11.2 mg/dL (9.0-27.0); Calcium 9.1 mg/dL (8.7-10.3); Carbon Dioxide 25.5 mmol/L (21.6-31.8); Chloride 105 mmol/L (96-109); Glucose 150 mg/dL (70-110); Potassium 4.2 mmol/L (3.5-5.5); Sodium 141 mmol/L (135-145)
[2022-09-21 11:56] LABS: Glucose,Whole Blood 167 mg/dL (70-110)
[2022-09-21 12:34] VITALS: BP 152/97; PULSE 87; TEMP 97.5
[2022-09-21] MEDS ORDERED: ERTAPENEM 1 GM in SODIUM CHLORIDE 0.9% 50 ML IVPB SCH (14:15)
[2022-09-21 17:05] LABS: Glucose,Whole Blood 306 mg/dL (70-110)
--- NOTE | 2022-09-21 17:38 | P.DS ---
Providers Date of admission: 09/17/22 14:57 Expected date of discharge: 09/21/22 Attending physician: Osmani Yeung MD Consults: 09/17/22 14:40 Consult Physician Urgent Consulting Provider: Chana Tenorio Consult Reason/Comments: Right great toe cellulitis, failed outpatient tx Do you want consulting provider notified?: Yes 09/17/22 17:51 Consult Physician Routine Consulting Provider: Chana Tenorio Consult Reason/Comments: diabetic toe infection, failed outpatient tx Do you want consulting provider notified?: Yes Primary care physician: Mikayla De La Cruz DO Hospital Course: Discharge Diagnosis: Infected diabetic wound with surrounding cellulitis, failed outpatient treatment with antibiotics. Wound cultures were obtained positive for anaerobic gram-negative bacilli. Blood cultures remain negative showing no growth to date. Discussed with infectious disease recommending patient have midline inserted. Patient being discharged home on IV Invanz 1 g IVPB every 24 hours 14 days. Insulin-dependent diabetes mellitus with hyperglycemia. Hemoglobin A1c 8.1%. Patient being discharged home on metformin 1000 g twice daily in addition to long acting insulin glargine 40 units nightly and NovoLog sliding scale. Hypertension. Patient to continue daily medication regimen with lisinopril 5 mg daily and amlodipine 5 mg daily. Hyperlipidemia. Patient to continue daily medication regimen with atorvastatin 10 mg nightly. Hospital Course: Patient is a very pleasant 62-year-old male with a past medical history of insulin-dependent diabetes mellitus, hypertension, and hyperlipidemia.. He presented to the emergency department secondary to concerns of nonhealing diabetic wound to right great toe. Patient reports on 09/05/22 he stepped on a nail causing a puncture wound of right great toe. Patient reports that this time he was evaluated at the urgent care center where wound was thoroughly cleaned and he was started on a 10 day course of ciprofloxacin and Keflex in which she completed on 09/15/22 with little improvement in wound of right great toe. Patient states that he was instructed if he did not have improvement he will need to come to the emergency department for evaluation due to nonhealing diabetic wound. Patient reports that he has noticed his blood glucose levels have been elevated at home. He denies any known fevers, chills, diaphoresis, chest pain, palpitations, shortness of breath, nausea, vomiting, abdominal pain, difficulties with her changes in his urination, or experiencing any numbness/tingling/weakness in his extremities. Patient reports last TDAP was in 2019. He underwent full evaluation in the emergency department. Vital signs evaluated. Blood pressure 158/105, heart rate 89, respiratory rate 20, SpO2 98% on room air with temp 97.8F. CBC unremarkable with WBC count of 9.3. BMP showing elevated glucose of 244. Liver enzymes normal findings. CRP elevated at 4.0. X-ray right foot negative for acute fracture or dislocation showing no distracted changes, no metallic foreign bodies noted, with indeterminant tiny punctuate densities along the plantar surface of the DIP joint. Discussed patient presentation, physical exam findings, laboratory analysis, and imaging results in detail with the ED physician. Patient started on IV antibiotics and admitted under services of consultation to infectious disease. Wound cultures were obtained positive for anaerobic gram-negative bacilli. Blood cultures remain negative showing no growth to date. Discussed with infectious disease recommending patient have midline inserted. Patient being discharged home on IV Invanz 1 g IVPB every 24 hours 14 days. Arrangements have been made with [facility] infusion center. Patient medically stable for discharge at this time and a follow-up as scheduled with infusion center tomorrow, PCP in 1-2 days and infectious disease physician in one week. Physical exam: Vital signs reviewed and stable. General: Nontoxic, no distress and appears stated age. Derm: Skin warm and dry, normal coloration for ethnicity. patient with moderate swelling and erythema of right great toe with wound/ulcer to pedal surface of the base of his right great toe with clear yellow drainage. Head: Atraumatic, normocephalic and symmetric. Eyes: EOMs intact, no lid lag, and anicteric sclera Mouth: no lip lesions, mucus membranes moist Cardiovascular: regular rate and rhythm with normal S1S2, no murmur, positive posterior tibial pulses bilaterally, and cap refill < 2 seconds. Lungs: Respirations even, regular, and unlabored on room air. Lungs CTA bilaterally, no rhonchi, no rales, no wheezing, and no accessory muscle usage. Abdominal: soft, nontender to palpation, no guarding, no appreciable organomegaly Ext: ROM intact. No gross muscle atrophy, no edema, no contractures Neuro: Speech clear, face symmetrical and CN II-XII grossly intact with no noted focal neuro deficits Psych: Alert and oriented to person, place, time, and situation. Appropriate and pleasant affect. A total of 32 minutes of time were spent preparing this complex discharge summary. Pt was discharged on 09/21/22 at 5:32 PM Patient was seen independently by Nurse Practitioner. This document was prepared using [employer] dictation software. Please allow for errors in broadcast checker while rare they do occur. I reviewed the documentation as provided by the RIKA above, who is the original author of this note. I agree with the documented assessment and plan, with the following changes: none Patient Condition at Discharge: Stable Plan - Discharge Summary Discharge Rx Participant: No New Discharge Prescriptions: New Ertapenem [INVanz] 1 gm IVPB Q24H #14 each HYDROcodone/APAP 5-325MG [Reno 5-325] 1 each PO Q4HR PRN #188 tab PRN Reason: Moderate Pain (Scale 4 To 6) amLODIPine [Norvasc] 5 mg PO DAILY 30 Days #30 tab Continue metFORMIN HCL 1,000 mg PO DAILY Insulin Glargine,Hum.rec.anlog [Lantus Solostar Pen] 40 units SQ HS lisinopriL [Zestril] 5 mg PO DAILY Simvastatin [Zocor] 10 mg PO HS Insulin Aspart [NovoLOG Flexpen] 4 - 14 units SQ TID-W/MEALS Ciclopirox 1 applic TOPICAL HS Multivitamin [Multivitamins Adult Gummies] 1 cap PO DAILY Discharge Medication List Ciclopirox 1 applic TOPICAL HS 09/17/22 [History] Insulin Aspart [NovoLOG Flexpen] 4 - 14 units SQ TID-W/MEALS 09/17/22 [History] Insulin Glargine,Hum.rec.anlog [Lantus Solostar Pen] 40 units SQ HS 09/17/22 [History] Multivitamin [Multivitamins Adult Gummies] 1 cap PO DAILY 09/17/22 [History] Simvastatin [Zocor] 10 mg PO HS 09/17/22 [History] lisinopriL [Zestril] 5 mg PO DAILY 09/17/22 [History] metFORMIN HCL 1,000 mg PO DAILY 09/17/22 [History] Ertapenem [INVanz] 1 gm IVPB Q24H #14 each 09/21/22 [Rx] HYDROcodone/APAP 5-325MG [Reno 5-325] 1 each PO Q4HR PRN #188 tab 09/21/22 [Rx] amLODIPine [Norvasc] 5 mg PO DAILY 30 Days #30 tab 09/21/22 [Rx] Follow up Appointment(s)/Referral(s): [facility],[place] [NON-STAFF] - 09/22/22 3:00 pm (This is where you will go for your IV antibiotic every day) Mikayla De La Cruz DO [Primary Care Provider] - 1-2 days (The office is closed please call and make your follow up appointment.) Chana Tenorio MD [STAFF PHYSICIAN] - 10/04/22 2:00 pm Patient Instructions/Handouts: Hydrocodone/Acetaminophen (By mouth), Amlodipine (By mouth), Ertapenem (By injection), Cellulitis (ED) Activity/Diet/Wound Care/Special Instructions: --Please go the [facility] office tomorrow at 3pm - please arrive 15 minutes early for your first visit. -- Dry dressing change daily to right great toe wound Discharge Disposition: HOME SELF-CARE
--- NOTE | 2022-09-28 14:32 | P.PN ---
Subjective Progress Note Date: 09/21/22 Principal diagnosis: R big toe diabetic foot infection Patient is a 62-year-old male with a past medical history significant for diabetes mellitus hypertension hyperlipidemia apparently the patient stepped on a nail causing a puncture wound on the right big toe happened on 10/05/2022, Patient failed outpatient oral Keflex and Cipro therapy x-ray did not show any bony abnormality. On today's evaluation that is 09/21/2022 patient continues to be afebrile patient is breathing comfortably on room air, the patient denies chest pain shortness of breath or cough no abdominal pain oral pain swelling and redness to the right great toe has decreased in intensity denies any worsening drainage Objective - Vital Signs Vital signs: Vital Signs Temp 97.5 F L 09/21/22 11:53 Pulse 87 09/21/22 11:53 Resp 18 09/21/22 11:53 BP 152/97 09/21/22 11:53 Pulse Ox 99 09/21/22 11:53 FiO2 Intake & Output 09/20/22 09/21/22 09/21/22 18:59 06:59 18:59 Intake Total 200 500 Balance 200 500 Intake: Intake, IV Titration 200 Amount Ampicillin-Sulbactam 3 gm 200 In Sodium Chloride 0.9% 100 ml @ 200 mls/hr IVPB Q6HR [facility] Rx#:[id number] Oral 500 Other: Voiding Method Toilet Toilet # Voids 2 2 # Bowel Movements 1 - Exam GENERAL DESCRIPTION: Middle-age male lying in bed in no distress RESPIRATORY SYSTEM: Unlabored breathing , decreased breath sounds at bases HEART: S1 S2 regular rate and rhythm ,no loud murmurs ABDOMEN: Soft , no tenderness EXTREMITIES: Right big toe did have a wound on the plantar aspect with minimal purulent drainage overall swelling and redness has decreased in intensity - Labs CBC & Chem 7: 09/21/22 06:46 09/21/22 06:46 Labs: Abnormal Lab Results - Last 24 Hours (Table) 09/20/22 09/20/22 09/21/22 Range/Units 17:14 20:05 06:46 Hgb 15.4 H (12.0-15.0) d/dL Glucose (70-110) mg/dL POC Glucose (mg/dL) 176 H 277 H (70-110) mg/dL C-Reactive Protein (0.00-0.80) mg/dL 09/21/22 09/21/22 09/21/22 Range/Units 06:46 07:18 11:55 Hgb (12.0-15.0) d/dL Glucose 150 H (70-110) mg/dL POC Glucose (mg/dL) 162 H 167 H (70-110) mg/dL C-Reactive Protein 0.90 H (0.00-0.80) mg/dL Microbiology - Last 24 Hours (Table) 09/17/22 15:30 Blood Culture - Preliminary Blood 09/17/22 15:00 Blood Culture - Preliminary Blood 09/17/22 13:30 Anaerobic Culture - Final Toe - Right Second Anaerobic Gm Negative Bacilli 09/17/22 13:30 Gram Stain - Final Toe - Right First Assessment and Plan (1) Cellulitis of great toe, right Status: Acute Code(s): L03.031 - CELLULITIS OF RIGHT TOE SNOMED Code(s): 48789605 (2) Failure of outpatient treatment Status: Acute Code(s): Z78.9 - OTHER SPECIFIED HEALTH STATUS SNOMED Code(s): 757554042 Plan: 1-Patient with right big toe diabetic foot infection in this patient with a wound on the plantar aspect of the second cellulitis failing outpatient oral Cipro and Keflex therapy possible related to burden of disease x-rays were negative for any bony changes 2-local cultures did grew enterococcus and anaerobes, patient did have a sed rate of 42 3-we will recommend two-week course of IV Invanz 1 g daily and close outpatient follow-up questions concerned were answered, prescription provided to the pillowcase sewer Time with Patient: Less than 30
== END 2022-09-21 18:40 | disposition home or self-care (01) | DRG 639 ==
LOC: EC 12:59 → 5NMEDONC 14:57
PROVIDERS: ADMIT Student in an Organized Health Care Education/Training Program; ATTEND Student in an Organized Health Care Education/Training Program
PROC: 05HB33Z Insertion of Infusion Device into Right Basilic Vein, Percutaneous Approach (ICD-10-PCS; principal; 2022-09-21 15:30)
DX: E11.628 Type 2 diabetes mellitus with other skin complications (principal); E11.65 Type 2 diabetes mellitus with hyperglycemia; L03.031 Cellulitis of right toe; I10 Essential (primary) hypertension; E78.5 Hyperlipidemia, unspecified; S91.131A Puncture wound without foreign body of right great toe without damage to nail, initial encounter; Z79.4 Long term (current) use of insulin; Z79.84 Long term (current) use of oral hypoglycemic drugs; Z79.899 Other long term (current) drug therapy; W45.0XXA Nail entering through skin, initial encounter; Z83.3 Family history of diabetes mellitus
CPT/HCPCS: 36410; 36415; 76937; 80048; 80053; 80202; 82565; 83036; 83605; 85025; 85027; 85652; 86140; 87040; 87070; 87075; 87077; 87186; 87205; 96365; 96366; 99285